=== PATIENT | female | born 1940 | race Caucasian/White ===

== ENCOUNTER → 2018-06-19 18:30 | Outpatient (CLI) | payer OTHER | END | disposition home or self-care (01) | LOC: D.LABREF 18:30 | PROVIDERS: ATTEND Orthopaedic Surgery | DX: M17.11 Unilateral primary osteoarthritis, right knee (principal); Z11.8 Encounter for screening for other infectious and parasitic diseases ==

== ENCOUNTER 2018-07-18 12:32 | Inpatient (IN) | payer MEDICARE, MEDICAID ==
[~2018-07-18] VITALS: Ht 160 cm; Wt 90.7 kg
[2018-08-14] MEDS ORDERED: BAYER CHEWABLE81 MG PO (14:17)
[2018-08-14] MEDS ORDERED: CITRACAL + D E1 EACH PO (14:18)
[2018-08-14] MEDS ORDERED: LOPRESSOR25 MG PO (14:18)
[2018-08-14] MEDS ORDERED: CENTRUM SILVER1 EAC3 PO (14:18)
[2018-08-14] MEDS ORDERED: ZETIA10 MG PO (14:39)
[2018-08-14] MEDS ORDERED: CO Q-1030 MG (14:39)
[2018-08-14] MEDS ORDERED: NORVASC10 MG PO (14:39)
[2018-08-14] MEDS ORDERED: FLUTICASONE PRO16 GM NASAL (14:40)
[2018-08-14] MEDS ORDERED: HUMALOG U SC (14:42)
[2018-08-14] MEDS ORDERED: PAXIL30 MG PO (14:44)
[2018-08-14] MEDS ORDERED: COUMADIN5 MG PO (14:44)
[2018-08-14] MEDS ORDERED: COZAAR100 MG PO (14:44)
[2018-08-15 12:04] LABS: BASOPHILS 0.2 % (0-2); EOSINOPHILS 1.8 % (0-7); HEMATOCRIT 37.9 % (36.0-48.0); HEMOGLOBIN 12.3 g/dL (12-16); IMMATURE GRANULOCYTES 0.5 % (0-5); LYMPHOCYTES 26.2 % (15-50); MCH 29.3 pg (26.0-34.0); MCHC 32.5 g/dL (31.0-37.0); MCV 90.2 fL (80.0-100.0); MEAN PLATELET VOLUME 10.1 fL (7.4-10.4); MONOCYTES 9.5 % (2-11); NEUTROPHILS 61.8 % (40-80); PLATELET COUNT 229 10x3/uL (130-400); WBC 10.8 10x3/uL (4.8-10.8)
[2018-08-15 12:21] LABS: ANION GAP 13.3 mmol/L (8-16); CALCIUM 9.4 mg/dL (8.5-10.1); CARBON DIOXIDE 31.7 mmol/L (21.0-32.0)
[2018-08-15 12:29] LABS: INR 1.97 (0.85-1.17); PROTIME 21.7 SECONDS (11.6-15.0)
[2018-08-15 12:30] LABS: APTT 59.9 SECONDS (22.8-39.4)
[2018-08-15 13:15] LABS: APPEARANCE HAZY (CLEAR); BACTERIA MANY /hpf (NONE SEEN); BILIRUBIN NEGATIVE (NEGATIVE); COLOR YELLOW (YELLOW); EPITHELIAL CELLS 0-5 /hpf (0-5); GLUCOSE NEGATIVE (NEGATIVE); KETONE NEGATIVE (NEGATIVE); MUCUS <1+ /lpf (NONE SEEN); NITRITE POSITIVE (NEGATIVE); PROTEIN TRACE mg/dL (NEGATIVE); SPECIFIC GRAVITY 1.015 (1.005-1.020); UROBILINOGEN NORMAL (NORMAL)
[2018-08-22] VITALS (15 sets, daily range): BP systolic 91–142; BP diastolic 40–749; BMI 40.8; BMI 35.5
[2018-08-23] VITALS: BP 134/49
[2018-08-23 04:00] VITALS: BP 133/61
[2018-08-23 05:04] LABS: BASOPHILS 0.1 % (0-2); EOSINOPHILS 0 % (0-7); HEMATOCRIT 32.9 % (36.0-48.0); HEMOGLOBIN 10.4 g/dL (12-16); IMMATURE GRANULOCYTES 0.2 % (0-5); LYMPHOCYTES 10.8 % (15-50); MCH 28.5 pg (26.0-34.0); MCHC 31.6 g/dL (31.0-37.0); MCV 90.1 fL (80.0-100.0); MEAN PLATELET VOLUME 10.4 fL (7.4-10.4); MONOCYTES 7.9 % (2-11); PLATELET COUNT 194 10x3/uL (130-400); RBC 3.65 10x6/uL (4.00-5.40); RDW 14.9 % (11.5-14.5); WBC 12.1 10x3/uL (4.8-10.8)
[2018-08-23 05:16] LABS: ANION GAP 13.1 mmol/L (8-16); CREATININE - SERUM 1.5 mg/dL (0.6-1.3); POTASSIUM - SERUM 5.1 mmol/L (3.5-5.1)
[2018-08-23 08:15] VITALS: BP 142/66
[2018-08-23 12:24] VITALS: BP 142/67
[2018-08-23 12:52] VITALS: Ht 160 cm; Wt 90.7 kg
[2018-08-23 16:26] VITALS: BP 127/53
[2018-08-23 20:00] VITALS: BP 144/73
[2018-08-24] VITALS: BP 146/68
[2018-08-24 04:00] VITALS: BP 160/69
[2018-08-24 06:36] LABS: BASOPHILS 0.2 % (0-2); EOSINOPHILS 1.8 % (0-7); HEMATOCRIT 32.8 % (36.0-48.0); HEMOGLOBIN 10.4 g/dL (12-16); IMMATURE GRANULOCYTES 0.4 % (0-5); LYMPHOCYTES 20.5 % (15-50); MCH 28.9 pg (26.0-34.0); MCHC 31.7 g/dL (31.0-37.0); MCV 91.1 fL (80.0-100.0); MEAN PLATELET VOLUME 10.8 fL (7.4-10.4); MONOCYTES 10.9 % (2-11); NEUTROPHILS 66.2 % (40-80); PLATELET COUNT 190 10x3/uL (130-400); RDW 14.9 % (11.5-14.5)
[2018-08-24] MEDS ORDERED: HYDROCODON-ACE1 EAC2 PO (07:46)
[2018-08-24 09:00] VITALS: BP 158/70
[2018-08-24 09:25] LABS: CALCIUM 8.4 mg/dL (8.5-10.1)
[2018-08-24 09:27] LABS: CREATININE - SERUM 1.1 mg/dL (0.6-1.3)
[2018-08-24 09:28] LABS: ANION GAP 9.9 mmol/L (8-16); CARBON DIOXIDE 30.4 mmol/L (21.0-32.0); POTASSIUM - SERUM 4.3 mmol/L (3.5-5.1)
[2018-08-24 13:23] VITALS: BP 149/56
--- NOTE | 2018-08-24 14:59 | MORECARE ---
CASE MANAGEMENT DISCHARGE SUMMARY PATIENT: CHAITANYA RICKS UNIT: [id number] ADM DATE: 08/22/18 AGE: 77 : 42 SEX: F ROOM/BED: D.2206 AUTHOR: NUSRAT WHITESIDE PHYSICIAN: REFERRING PHYSICIAN: AMA PERERA MD DATE OF SERVICE: 08/24/18 Discharge Plan Patient Name: CHAITANYA RICKS Facility: [facility]:[place] : 1940 Planned Disposition: Half-Way Facility Anticipated Discharge Date: Discharge Date: Expected LOS: Initial Reviewer: [email or web address] Initial Review Date: 08/22/2018 Generated: 08/24/18 3:59 pm Comments DCP- Discharge Planning Updated by [email or web address]: Zohra Ham on 08/24/18 1:[address] Patient Name: CHAITANYA RICKS Admission Status: Elective Accout number: [id number] Admission Date: 08-22-2018 : 1940 Admission Diagnosis: Attending: AMA PERERA Current LOS: 2 Anticipated DC Date: Planned Disposition: Half-Way Facility Primary Insurance: [facility] MEDICARE SOLUTIONS Discharge Planning Comments: CM met with patient to complete initial dc planning assessment. CM educated patient on the CM role and verbal consent given by patient to complete assessment. Patient lives at home independently where she is lives alone. At discharge patient would like to go to a skilled facility and feels this is a safe discharge. CM discussed availability of home health, rehab services, and medical equipment. SALLY with 1)[facility] 2) [facility]. I sent referral to [facility] and they are out of network. Patient's second choice is [facility]. I sent a referral to [facility]. Will wait for Auth. Patient has a walker and a cane at home. 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 CM will continue to follow and will assist as needed with dc plans/needs. Sr. Director Product Management: Zohra Ham DCPIA - Discharge Planning Initial Assessment Updated by [email or web address]: Zohra Ham on 08/24/18 2:53 pm * Is the patient Alert and Oriented? Yes * How many steps to enter\exit or inside your home? * PCP LALI * Pharmacy [facility] * Preadmission Environment Home Alone * ADLs Independent * Equipment Cane Walker * List name and contact numbers for known caregivers / representatives who currently or will assist patient after discharge: MERLYN RICKS [phone] * Verbal permission to speak to the caregivers and representatives has been obtained from the patient. N/A * Community resources currently utilized None * Additional services required to return to the preadmission environment? Yes * Can the patient safely return to the preadmission environment? No * Has this patient been hospitalized within the prior 30 days at any hospital? No External Providers External Provider: [facility] Next Contact Date: Service Request Date: Service Type: Resolution: Reviewer: Comments: [facility] Next Contact Date: Service Request Date: Service Type: Resolution: Reviewer: Comments: Coverage Notice Reviewer: [id number] Ty Ham Notice Issued Date-Time: 08/24/2018 14:55 Notice Type: Patient Choice Letter Notice Delivered To: Patient Relationship to Patient: Lead Sprinkler Name: Delivery Method: HAND - Hand Delivered Cynthia Days: Prior Verbal Notification: Recipient Understood Notice: Yes Recipient Signature: Yes Med Rec Note Co-signed by Attending: Coverage Notice Comment: Patient Name: CHAITANYA RICKS Page [id number] at 1459 All edits/amendments must be made on the electronic document DICTATION DATE: 08/24/181457 LINE COOK: VIKTOR 08/24/181457 RPT#: [id number] DC DATE: STATUS: ADM IN [facility] [address] [place] [address] END OF REPORT
[2018-08-24 17:22] VITALS: BP 169/55
[2018-08-24 19:47] VITALS: BP 170/74
[2018-08-25] VITALS: BP 187/84
[2018-08-25 04:00] VITALS: BP 164/69
[2018-08-25 07:37] LABS: BASOPHILS 0.2 % (0-2); EOSINOPHILS 1.8 % (0-7); HEMOGLOBIN 11.3 g/dL (12-16); IMMATURE GRANULOCYTES 0.8 % (0-5); LYMPHOCYTES 17.8 % (15-50); MCH 28.9 pg (26.0-34.0); MCHC 32.3 g/dL (31.0-37.0); MCV 89.5 fL (80.0-100.0); MEAN PLATELET VOLUME 11.1 fL (7.4-10.4); MONOCYTES 11.5 % (2-11); NEUTROPHILS 67.9 % (40-80); PLATELET COUNT 179 10x3/uL (130-400); RBC 3.91 10x6/uL (4.00-5.40); RDW 14.5 % (11.5-14.5); WBC 12.2 10x3/uL (4.8-10.8)
[2018-08-25 08:35] VITALS: BP 176/81
[2018-08-25 12:48] VITALS: BP 171/63
[2018-08-25 16:47] VITALS: BP 136/77
[2018-08-25 20:00] VITALS: BP 187/89
[2018-08-26] VITALS: BP 180/87
[2018-08-26 04:00] VITALS: BP 167/65
[2018-08-26 09:05] VITALS: BP 136/69
--- NOTE | 2018-08-26 12:10 | MORECARE ---
CASE MANAGEMENT DISCHARGE SUMMARY PATIENT: CHAITANYA RICKS UNIT: [id number] ADM DATE: 08/22/18 AGE: 77 : 42 SEX: F ROOM/BED: D.2206 AUTHOR: NUSRAT WHITESIDE PHYSICIAN: REFERRING PHYSICIAN: AMA PERERA MD DATE OF SERVICE: 08/26/18 Discharge Plan Patient Name: CHAITANYA RICKS Facility: [facility]:[place] : 1940 Planned Disposition: Alf Facility Anticipated Discharge Date: 08/26/18 Discharge Date: Expected LOS: 4 Initial Reviewer: [email or web address] Initial Review Date: 08/22/2018 Generated: 08/26/18 1:10 pm Comments DCP- Discharge Planning Updated by [email or web address]: Zohra Ham on 08/24/18 1:[address] Patient Name: CHAITANYA RICKS Admission Status: Elective Accout number: [id number] Admission Date: 08-22-2018 : 1940 Admission Diagnosis: Attending: AMA PERERA Current LOS: 2 Anticipated DC Date: Planned Disposition: Alf Facility Primary Insurance: [facility] MEDICARE SOLUTIONS Discharge Planning Comments: CM met with patient to complete initial dc planning assessment. CM educated patient on the CM role and verbal consent given by patient to complete assessment. Patient lives at home independently where she is lives alone. At discharge patient would like to go to a skilled facility and feels this is a safe discharge. CM discussed availability of home health, rehab services, and medical equipment. SALLY with 1)[facility] 2) [facility]. I sent referral to [facility] and they are out of network. Patient's second choice is [facility]. I sent a referral to [facility]. Will wait for Auth. Patient has a walker and a cane at home. 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 CM will continue to follow and will assist as needed with dc plans/needs. Subcontract Administrator: Zohra Ham DCPIA - Discharge Planning Initial Assessment Updated by [email or web address]: Zohra Ham on 08/24/18 2:53 pm * Is the patient Alert and Oriented? Yes * How many steps to enter\exit or inside your home? * PCP LALI * Pharmacy [facility] * Preadmission Environment Home Alone * ADLs Independent * Equipment Cane Walker * List name and contact numbers for known caregivers / representatives who currently or will assist patient after discharge: MERLYN RICKS [phone] * Verbal permission to speak to the caregivers and representatives has been obtained from the patient. N/A * Community resources currently utilized None * Additional services required to return to the preadmission environment? Yes * Can the patient safely return to the preadmission environment? No * Has this patient been hospitalized within the prior 30 days at any hospital? No Coverage Notice Reviewer: [id number] Ty Ham Notice Issued Date-Time: 08/24/2018 14:55 Notice Type: Patient Choice Letter Notice Delivered To: Patient Relationship to Patient: Tennis Camp Instructor Name: Delivery Method: HAND - Hand Delivered Cynthia Days: Prior Verbal Notification: Recipient Understood Notice: Yes Recipient Signature: Yes Med Rec Note Co-signed by Attending: Coverage Notice Comment: Last DP export: 08/24/18 1:59 p Patient Name: CHAITANYA RICKS Page 31253 at 1210 All edits/amendments must be made on the electronic document DICTATION DATE: 08/26/18 1210 PRESCHOOL EDUCATION DIRECTOR: VIKTOR 08/26/18 1210 RPT#: [id number] DC DATE: STATUS: ADM IN [facility] [address] [place] [address] END OF REPORT
--- NOTE | 2018-08-26 12:17 | MORECARE ---
CASE MANAGEMENT DISCHARGE SUMMARY PATIENT: CHAITANYA RICKS UNIT: [id number] ADM DATE: 08/22/18 AGE: 77 : 42 SEX: F ROOM/BED: D.2206 AUTHOR: NUSRAT WHITESIDE PHYSICIAN: REFERRING PHYSICIAN: AMA PERERA MD DATE OF SERVICE: 08/26/18 Discharge Plan Patient Name: CHAITANYA RICKS Facility: [facility]:[place] : 1940 Planned Disposition: Half-Way Facility Anticipated Discharge Date: 08/26/18 Discharge Date: Expected LOS: 4 Initial Reviewer: [email or web address] Initial Review Date: 08/22/2018 Generated: 08/26/18 1:17 pm Comments DCP- Discharge Planning Updated by [email or web address]: Alis Oden on 08/26/18 11:[address] LATE ENTRY 1130 CM RECEIVED A TELEPHONE CALL FROM [facility] STATING SHE HAD REC THE AUTH FOR THE PATIENT. [facility] COULD ACCEPT TODAY IF PATIENT WAS MEDICALLY STABLE FOR DISCHARGE. DR GAYTAN HAD DOCUMENTED THIS AM THAT THE PATIENT WAS READY FOR DISCHARGE. ZAHIRA SPOKE WITH THE PRIMARY NURSE. SHE WILL CONTACT DR GAYTAN FOR ORDERS. CM FAXED UPDATED CLINICAL TO [phone]. NURSE IS TO CALL REPORT TO ASTRID AT [facility] AT [phone]. NELLA CALLED BACK TO SAY SHE HAS ARRANGED TRANSPORTATION TO [facility] VIA FACILITY [facility] AT 1300. ZAHIRA SPOKE W/ PRIMARY NURSE AND LEFT HER A NOTE W/ PHONE NUMBER AND PERSON TO SPEAK WITH TO GIVE REPORT. ZAHIRA ALSO NOTED THE TIME ARRANGED FOR TRANSPORT. ZAHIRA SPOKE WITH THE PATIENT TO ADVISE OF AUTH AND PLAN FOR DISCHARGE TODAY. SHE IS IN AGREEMENT. ZAHIRA EXPLAINED DISCHARGE IMM. PATIENT STATES SHE IS READY TO GET STARTED W/ REHAB. SIGNATURE OBTAINED. COPY TO THE PATIENT. SIGNED COPY TO THE PATIENT'S CHART. DCP- Discharge Planning Updated by [email or web address]: Zohra Ham on 08/24/18 1:[address] Patient Name: CHAITANYA RICKS Admission Status: Elective Accout number: [id number] Admission Date: 08-22-2018 : 1940 Admission Diagnosis: Attending: AMA PERERA Current LOS: 2 Anticipated DC Date: Planned Disposition: Half-Way Facility Primary Insurance: [facility] MEDICARE SOLUTIONS Discharge Planning Comments: CM met with patient to complete initial dc planning assessment. CM educated patient on the CM role and verbal consent given by patient to complete assessment. Patient lives at home independently where she is lives alone. At discharge patient would like to go to a skilled facility and feels this is a safe discharge. CM discussed availability of home health, rehab services, and medical equipment. SALLY with 1)[facility] 2) [facility]. I sent referral to [employer] and they are out of network. Patient's second choice is [facility]. I sent a referral to [facility]. Will wait for Auth. Patient has a walker and a cane at home. 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 CM will continue to follow and will assist as needed with dc plans/needs. Mechatronics Technician: Zohra Ham DCPIA - Discharge Planning Initial Assessment Updated by [id number]: Zohra Ham on 08/24/18 2:53 pm * Is the patient Alert and Oriented? Yes * How many steps to enter\exit or inside your home? * PCP LALI * Pharmacy [facility] * Preadmission Environment Home Alone * ADLs Independent * Equipment Cane Walker * List name and contact numbers for known caregivers / representatives who currently or will assist patient after discharge: MERLYN RICKS [phone] * Verbal permission to speak to the caregivers and representatives has been obtained from the patient. N/A * Community resources currently utilized None * Additional services required to return to the preadmission environment? Yes * Can the patient safely return to the preadmission environment? No * Has this patient been hospitalized within the prior 30 days at any hospital? No Coverage Notice Reviewer: [id number] - Zohra Ham Notice Issued Date-Time: 08/24/2018 14:55 Notice Type: Patient Choice Letter Notice Delivered To: Patient Relationship to Patient: Hoist Mechanic Name: Delivery Method: HAND - Hand Delivered Cynthia Days: Prior Verbal Notification: Recipient Understood Notice: Yes Recipient Signature: Yes Med Rec Note Co-signed by Attending: Coverage Notice Comment: Reviewer: [id number] Ty Oden Notice Issued Date-Time: 08/26/2018 12:01 Notice Type: IM Discharge Notice Notice Delivered To: Patient Relationship to Patient: Self Hoist Mechanic Name: Delivery Method: - Cynthia Days: Prior Verbal Notification: Recipient Understood Notice: Recipient Signature: Med Rec Note Co-signed by Attending: Coverage Notice Comment: Last DP export: 08/26/18 11:10 a Patient Name: CHAITANYA RICKS Page [phone] at 1217 All edits/amendments must be made on the electronic document DICTATION DATE: 08/26/18 1216 THERAPEUTIC RECREATION ASSISTANT: VIKTOR 08/26/18 1216 RPT#: [id number] DC DATE: STATUS: ADM IN [facility] [address] [place] [address] END OF REPORT
[2018-08-26 13:10] VITALS: BP 140/58
--- NOTE | 2018-08-26 15:09 | MORECARE ---
CASE MANAGEMENT DISCHARGE SUMMARY PATIENT: CHAITANYA RICKS UNIT: [id number] ADM DATE: 08/22/18 AGE: 77 : 42 SEX: F ROOM/BED: D.2206 AUTHOR: STEVODOC PHYSICIAN: REFERRING PHYSICIAN: AMA PERERA MD DATE OF SERVICE: 08/26/18 Discharge Plan Patient Name: CHAITANYA RICKS Facility: [facility]:[place] : 1940 Planned Disposition: Senior Care Facility Anticipated Discharge Date: 08/26/18 Discharge Date: 08/26/2018 Expected LOS: 4 Initial Reviewer: [email or web address] Initial Review Date: 08/22/2018 Generated: 08/26/18 4:08 pm Comments DCP- Discharge Planning Updated by [id number]: Alis Oden on 08/26/18 11:[address] LATE ENTRY 1130 CM RECEIVED A TELEPHONE CALL FROM [facility] STATING SHE HAD REC THE AUTH FOR THE PATIENT. [facility] COULD ACCEPT TODAY IF PATIENT WAS MEDICALLY STABLE FOR DISCHARGE. DR GAYTAN HAD DOCUMENTED THIS AM THAT THE PATIENT WAS READY FOR DISCHARGE. ZAHIRA SPOKE WITH THE PRIMARY NURSE. SHE WILL CONTACT DR GAYTAN FOR ORDERS. CM FAXED UPDATED CLINICAL TO [phone]. NURSE IS TO CALL REPORT TO [facility] AT [facility] AT [phone]. NELLA CALLED BACK TO SAY SHE HAS ARRANGED TRANSPORTATION TO [facility] VIA FACILITY VAN AT 1300. ZAHIRA SPOKE W/ PRIMARY NURSE AND LEFT HER A NOTE W/ PHONE NUMBER AND PERSON TO SPEAK WITH TO GIVE REPORT. ZAHIRA ALSO NOTED THE TIME ARRANGED FOR TRANSPORT. ZAHIRA SPOKE WITH THE PATIENT TO ADVISE OF AUTH AND PLAN FOR DISCHARGE TODAY. SHE IS IN AGREEMENT. ZAHIRA EXPLAINED DISCHARGE IMM. PATIENT STATES SHE IS READY TO GET STARTED W/ REHAB. SIGNATURE OBTAINED. COPY TO THE PATIENT. SIGNED COPY TO THE PATIENT'S CHART. DCP- Discharge Planning Updated by [id number]: Zohra Ham on 08/24/18 1:[address] Patient Name: CHAITANYA RICKS Admission Status: Elective Accout number: [id number] Admission Date: 08-22-2018 : 1940 Admission Diagnosis: Attending: AMA PERERA Current LOS: 2 Anticipated DC Date: Planned Disposition: Senior Care Facility Primary Insurance: [facility] MEDICARE SOLUTIONS Discharge Planning Comments: CM met with patient to complete initial dc planning assessment. CM educated patient on the CM role and verbal consent given by patient to complete assessment. Patient lives at home independently where she is lives alone. At discharge patient would like to go to a skilled facility and feels this is a safe discharge. CM discussed availability of home health, rehab services, and medical equipment. SALLY with 1)[facility] 2) [facility]. I sent referral to [place] and they are out of network. Patient's second choice is [facility]. I sent a referral to [facility]. Will wait for Auth. Patient has a walker and a cane at home. 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 CM will continue to follow and will assist as needed with dc plans/needs. Research Quality Assurance Analyst: Zohra Ham DCPIA - Discharge Planning Initial Assessment Updated by [id number]: Zohra Ham on 08/24/18 2:53 pm * Is the patient Alert and Oriented? Yes * How many steps to enter\exit or inside your home? * PCP LALI * Pharmacy [facility] * Preadmission Environment Home Alone * ADLs Independent * Equipment Cane Walker * List name and contact numbers for known caregivers / representatives who currently or will assist patient after discharge: MERLYN RICKS [phone] * Verbal permission to speak to the caregivers and representatives has been obtained from the patient. N/A * Community resources currently utilized None * Additional services required to return to the preadmission environment? Yes * Can the patient safely return to the preadmission environment? No * Has this patient been hospitalized within the prior 30 days at any hospital? No Coverage Notice Reviewer: [id number] - Zohra Ham Notice Issued Date-Time: 08/24/2018 14:55 Notice Type: Patient Choice Letter Notice Delivered To: Patient Relationship to Patient: Soap Maker Name: Delivery Method: HAND - Hand Delivered Cynthia Days: Prior Verbal Notification: Recipient Understood Notice: Yes Recipient Signature: Yes Med Rec Note Co-signed by Attending: Coverage Notice Comment: Reviewer: [email or web address] Ty Oden Notice Issued Date-Time: 08/26/2018 12:01 Notice Type: IM Discharge Notice Notice Delivered To: Patient Relationship to Patient: Self Soap Maker Name: Delivery Method: HAND - Hand Delivered Cynthia Days: Prior Verbal Notification: Recipient Understood Notice: Yes Recipient Signature: Yes Med Rec Note Co-signed by Attending: Coverage Notice Comment: CM EXPLAINED DISCHARGE IMM. PATIENT HAD NO QUESTIONS OR CONCERN. SIGNATURE OBTAINED. COPY TO THE PATIENT. COPY TO THE HARD COVER CHART. Last DP export: 08/26/18 11:17 a Patient Name: CHAITANYA RICKS Page 28595 at 1509 All edits/amendments must be made on the electronic document DICTATION DATE: 08/26/18 1508 DIRECTOR ELECTRICAL ENGINEERING: VIKTOR 08/26/18 1508 RPT#: [id number] DC DATE:08/26/18 STATUS: DIS IN [facility] [address] [place] [address] END OF REPORT
== END 2018-08-26 13:52 | DRG 470 ==
LOC: D.SDCHOLD 08-15 10:00 → D.MS 08-22 05:50 → D.SDCHOLD 08-22 05:50 → D.MS 08-22 11:00 → D.SDCHOLD 11-22 10:00
PROVIDERS: Nurse Practitioner Family; ADMIT Orthopaedic Surgery; ATTEND Orthopaedic Surgery
PROC: 0SRC0J9 Replacement of Right Knee Joint with Synthetic Substitute, Cemented, Open Approach (ICD-10-PCS; principal; 2018-08-22 08:00)
DX: M17.11 Unilateral primary osteoarthritis, right knee (principal); I10 Essential (primary) hypertension; E78.5 Hyperlipidemia, unspecified; E11.9 Type 2 diabetes mellitus without complications

== ENCOUNTER → 2018-08-21 12:15 | Outpatient (CLI) | payer MEDICARE, MEDICAID ==
[~2018-08-21] VITALS: Ht 160 cm; Wt 104.3 kg
[~2018-08-21 12:15] MED LIST: BAYER CHEWABLE81 MG PO; CENTRUM SILVER1 EAC3 PO; CITRACAL + D E1 EACH PO; CO Q-1030 MG; COUMADIN5 MG PO; COZAAR100 MG PO; FLUTICASONE PRO16 GM NASAL; HUMALOG U SC; HYDROCODON-ACE1 EAC2 PO; LOPRESSOR25 MG PO; NORVASC10 MG PO; PAXIL30 MG PO; ZETIA10 MG PO
[2018-08-21 14:04] LABS: APPEARANCE CLEAR (CLEAR); BACTERIA MODERATE /hpf (NONE SEEN); BILIRUBIN NEGATIVE (NEGATIVE); COLOR YELLOW (YELLOW); EPITHELIAL CELLS 0-5 /hpf (0-5); GLUCOSE NEGATIVE (NEGATIVE); KETONE NEGATIVE (NEGATIVE); MUCUS <1+ /lpf (NONE SEEN); NITRITE NEGATIVE (NEGATIVE); PROTEIN TRACE mg/dL (NEGATIVE); SPECIFIC GRAVITY 1.005 (1.005-1.020); UROBILINOGEN NORMAL (NORMAL); WHITE CELLS - URINE OCC /hpf (0-5)
== END | disposition home or self-care (01) ==
LOC: D.LAB 12:15
PROVIDERS: ATTEND Orthopaedic Surgery
DX: N39.0 Urinary tract infection, site not specified (principal)

== ENCOUNTER → 2019-05-28 16:51 | Outpatient (CLI) | payer MEDICARE, MEDICAID ==
[2018-08-23 12:52] VITALS: BMI 35.4
== END | disposition home or self-care (01) ==
LOC: D.LABREF 16:51
PROVIDERS: ATTEND Orthopaedic Surgery
DX: M17.12 Unilateral primary osteoarthritis, left knee (principal)

== ENCOUNTER → 2019-05-29 10:41 | Outpatient (CLI) | payer MEDICARE, MEDICAID ==
[2018-08-23 12:52] VITALS: BMI 35.4
== END | disposition home or self-care (01) ==
LOC: D.MRI 10:41
PROVIDERS: ATTEND Clinical Nurse Specialist Family Health
DX: M25.511 Pain in right shoulder (principal)

== ENCOUNTER 2019-08-14 08:00 | Outpatient (CLI) | payer MEDICARE, MEDICAID ==
[2018-08-23 12:52] VITALS: BMI 35.4
[2019-08-14 11:56] LABS: BASOPHILS 0.2 % (0-2); HEMATOCRIT 42.1 % (36.0-48.0); HEMOGLOBIN 13.3 g/dL (12-16); IMMATURE GRANULOCYTES 0.4 % (0-5); MCH 28.4 pg (26.0-34.0); MCHC 31.6 g/dL (31.0-37.0); MEAN PLATELET VOLUME 10.2 fL (7.4-10.4); MONOCYTES 8.7 % (2-11); NEUTROPHILS 63.7 % (40-80); RBC 4.68 10x6/uL (4.00-5.40); RDW 14.6 % (11.5-14.5); WBC 10.1 10x3/uL (4.8-10.8)
[2019-08-14 11:58] LABS: PLATELET COUNT 230 10x3/uL (130-400)
[2019-08-14] MEDS ORDERED: ACETAMINOPHEN325 MG (12:04)
[2019-08-14 12:06] LABS: ANION GAP 12.3 mmol/L (8-16); CALCIUM 8.8 mg/dL (8.5-10.1); CARBON DIOXIDE 28.6 mmol/L (21.0-32.0); CREATININE - SERUM 0.8 mg/dL (0.6-1.3); POTASSIUM - SERUM 3.9 mmol/L (3.5-5.1)
[2019-08-14 12:07] LABS: APTT 54.9 SECONDS (22.8-39.4); INR 2.11 (0.85-1.17); PROTIME 23.3 SECONDS (11.6-15.0)
[2019-08-14 12:38] LABS: BILIRUBIN NEGATIVE (NEGATIVE); GLUCOSE NEGATIVE (NEGATIVE); KETONE NEGATIVE (NEGATIVE); NITRITE POSITIVE (NEGATIVE); SPECIFIC GRAVITY 1.015 (1.005-1.020); UROBILINOGEN NORMAL (NORMAL)
[2019-08-14 12:39] LABS: BACTERIA MANY /hpf (NEGATIVE); EPITHELIAL CELLS RARE /hpf (0-5); RED CELLS - URINE NONE SEEN /hpf (0-5)
== END 2019-08-14 08:01 | disposition home or self-care (01) ==
LOC: D.PAN 08:00 → D.SDCHOLD 08-21 08:00 → EDSTATUS 08-21 13:00 → D.SDCHOLD 08-21 13:00
PROVIDERS: ATTEND Orthopaedic Surgery
DX: M17.12 Unilateral primary osteoarthritis, left knee (principal)

== ENCOUNTER → 2019-12-03 17:23 | Outpatient (CLI) | payer MEDICARE, MEDICAID ==
[2018-08-23 12:52] VITALS: BMI 35.4
[~2019-12-03 17:23] MED LIST changes: +ACETAMINOPHEN325 MG
== END | disposition home or self-care (01) ==
LOC: D.LABREF 17:23
PROVIDERS: ATTEND Orthopaedic Surgery
DX: M17.12 Unilateral primary osteoarthritis, left knee (principal)

== ENCOUNTER 2019-12-05 08:45 | Inpatient (IN) | payer MEDICARE, MEDICAID ==
[~2019-12-05] VITALS: Ht 160 cm; Wt 95.3 kg
[~2019-12-05 08:45] MED LIST changes: -COUMADIN5 MG PO; +WARFARIN SODIUM5 MG PO
[2019-12-24] MEDS ORDERED: [UNRECOGNIZED DRUG - OTHER] PO (09:58)
[2019-12-24] MEDS ORDERED: ocuvite PO (10:30)
[2019-12-24] MEDS ORDERED: LUTEIN20 MG PO (10:31)
[2019-12-24] MEDS ORDERED: LOVENOX INJ100 MG/ML SC (10:32)
[2019-12-25 11:46] LABS: BASOPHILS 0.2 % (0-2); EOSINOPHILS 2.6 % (0-7); HEMATOCRIT 43.6 % (36.0-48.0); HEMOGLOBIN 13.7 g/dL (12-16); IMMATURE GRANULOCYTES 0.4 % (0-5); LYMPHOCYTES 20.6 % (15-50); MCH 28.2 pg (26.0-34.0); MCHC 31.4 g/dL (31.0-37.0); MCV 89.7 fL (80.0-100.0); MEAN PLATELET VOLUME 10.6 fL (7.4-10.4); MONOCYTES 10.7 % (2-11); NEUTROPHILS 65.5 % (40-80); PLATELET COUNT 240 10x3/uL (130-400); RBC 4.86 10x6/uL (4.00-5.40); RDW 14.5 % (11.5-14.5); WBC 10.8 10x3/uL (4.8-10.8)
[2019-12-25 11:54] LABS: ANION GAP 6.2 mmol/L (8-16); CALCIUM 9.3 mg/dL (8.5-10.1); CARBON DIOXIDE 33.6 mmol/L (21.0-32.0); POTASSIUM - SERUM 3.8 mmol/L (3.5-5.1)
[2019-12-25 11:58] LABS: INR 2.07 (0.85-1.17)
[2019-12-25 11:59] LABS: APTT 64.5 SECONDS (22.8-39.4); BILIRUBIN NEGATIVE (NEGATIVE); KETONE NEGATIVE (NEGATIVE); NITRITE POSITIVE (NEGATIVE); UROBILINOGEN NORMAL mg/dL (< 2)
[2019-12-25 12:00] LABS: BACTERIA MANY HPF (NONE SEEN); EPITHELIAL CELLS 0-5 /hpf (0-5)
[2019-12-30] VITALS (13 sets, daily range): BP systolic 102–143; BP diastolic 38–66; BMI 42.6; BMI 37.4
[2019-12-30 09:15] LABS: BILIRUBIN NEGATIVE (NEGATIVE); INR 1.06 (0.85-1.17); KETONE NEGATIVE (NEGATIVE); NITRITE NEGATIVE (NEGATIVE); PROTIME 13.7 SECONDS (11.6-15.0); UROBILINOGEN NORMAL mg/dL (< 2)
[2019-12-30 09:16] LABS: APTT 66.1 SECONDS (22.8-39.4)
[2019-12-30 09:18] LABS: BACTERIA FEW HPF (NONE SEEN); EPITHELIAL CELLS 0-5 /hpf (0-5); WHITE CELLS - URINE RARE HPF (0-4)
--- NOTE | 2019-12-30 10:53 | NUR ---
THROUGH TRAFFIC KEPT TO A MINIMUM. HIBACLENS AND ALCOHOL USED TO CLEAN BEFORE PREPPING. STERILE GOWNED AND GLOVED TO PREP WITH CHLORAPREP.
--- NOTE | 2019-12-30 14:10 | MORECARE ---
CASE MANAGEMENT DISCHARGE SUMMARY PATIENT: CHAITANYA RICKS AARTI UNIT: [id number] ADM DATE: 12/30/19 AGE: 78 : 42 SEX: F ROOM/BED: D.1212 AUTHOR: NUSRAT WHITESIDE PHYSICIAN: REFERRING PHYSICIAN: NIKO GAYTAN MD DATE OF SERVICE: 12/30/19 Discharge Plan Patient Name: CHAITANYA RICKS [facility] [facility] 1940 Planned Disposition: Anticipated Discharge Date: Discharge Date: Expected LOS: Initial Reviewer: [email or web address] Initial Review Date: 12/30/2019 Generated: 12/30/19 3:09 pm Patient Name: CHAITANYA RICKS Page 11710 at 1410 All edits/amendments must be made on the electronic document DICTATION DATE: 12/30/19 140 TOUCH UP PAINTER HAND: VIKTOR 12/30/19 1409 RPT#: [id number] DC DATE: STATUS: ADM IN [facility] [address] [place] [address] END OF REPORT
[2019-12-30 14:24] LABS: ALBUMIN 2.7 g/dL (3.4-5.0); ANION GAP 12.9 mmol/L (8-16); BILIRUBIN - TOTAL 0.17 mg/dL (0.2-1.3); CALCIUM 8.1 mg/dL (8.5-10.1); CREATININE - SERUM 1.2 mg/dL (0.6-1.3); POTASSIUM - SERUM 4.9 mmol/L (3.5-5.1); PROTEIN - SERUM 6.6 g/dL (6.4-8.2)
--- NOTE | 2019-12-30 14:29 | MORECARE ---
CASE MANAGEMENT DISCHARGE SUMMARY PATIENT: CHAITANYA VILLAFUERTE AARTI UNIT: [id number] ADM DATE: 12/30/19 AGE: 78 : 42 SEX: F ROOM/BED: D.1212 AUTHOR: NUSRAT WHITESIDE PHYSICIAN: REFERRING PHYSICIAN: NIKO GAYTAN MD DATE OF SERVICE: 12/30/19 Discharge Plan Patient Name: CHAITANYA VILLAFUERTE Facility: [facility]:[place] : 1940 Planned Disposition: Anticipated Discharge Date: Discharge Date: Expected LOS: Initial Reviewer: [email or web address] Initial Review Date: 12/30/2019 Generated: 12/30/19 3:28 pm Comments DCP- Discharge Planning Updated by [email or web address]: Leslie Westbrook on 12/30/19 1:[address] CM met with patient, who is still drowsy, to discuss DC plans. Patient is in agreement to same. PCP: Dr. Robert Silva. [facility]acy[facility]. Patient lives independently at [facility], alone. DME: Emergency call maurer, walker, cane, CPM, BSC, Shower chair, hand held shower. Emergency contact: Nicolás Villafuerte (son) [phone]. CM discussed HHS, OP Therapy, SNF, Rehab. Patient states that she plans to go to [facility] for OP Therapy. When questioned about transportation, patient reports "I'll walk there." Patient reports that she does not want to go into a SNF due to the COVID virus. CM will revisit tomorrow, when the patient is more alert and discuss DC plans again. DCPIA - Discharge Planning Initial Assessment Updated by [email or web address]: Leslie Westbrook on 12/30/19 2:22 pm * Is the patient Alert and Oriented? Yes * How many steps to enter\\exit or inside your home? * PCP Dr. Robert Nichole. * Pharmacy [facility] * Preadmission Environment Home Alone * ADLs Independent * Equipment Bedside Commode Cane Grab Bars Rolling Walker Tub Bench Walker * Other Equipment CPM * List name and contact numbers for known caregivers / representatives who currently or will assist patient after discharge: Nicolás Villafuerte [phone] * Verbal permission to speak to the caregivers and representatives has been obtained from the patient. Yes * Additional services required to return to the preadmission environment? Yes * Can the patient safely return to the preadmission environment? No * Has this patient been hospitalized within the prior 30 days at any hospital? No Last DP export: 12/30/19 1:10 p Patient Name: CHAITANYA VILLAFUERTE Page 87592 at 1429 All edits/amendments must be made on the electronic document DICTATION DATE: 12/30/191427 SPOT SPRAYER: VIKTOR 12/30/191427 RPT#: [id number] DC DATE: STATUS: ADM IN [facility] [address] [place] [address] END OF REPORT
[2019-12-30 14:30] LABS: BASOPHILS 0.1 % (0-2); EOSINOPHILS 0.4 % (0-7); HEMATOCRIT 38.1 % (36.0-48.0); HEMOGLOBIN 11.8 g/dL (12-16); IMMATURE GRANULOCYTES 0.7 % (0-5); LYMPHOCYTES 7.2 % (15-50); MCH 28.2 pg (26.0-34.0); MCV 90.9 fL (80.0-100.0); MEAN PLATELET VOLUME 10.7 fL (7.4-10.4); MONOCYTES 3.1 % (2-11); NEUTROPHILS 88.5 % (40-80); PLATELET COUNT 195 10x3/uL (130-400); RBC 4.19 10x6/uL (4.00-5.40); RDW 14.9 % (11.5-14.5); WBC 14.8 10x3/uL (4.8-10.8)
--- NOTE | 2019-12-30 15:25 | NUR ---
PT AWAKE AND HUNGRY. LUNCH TRAY EATEN BY SON. SANDWICH TRAY RECIEVED FROM L&D. CL IN REACH. NO FURTHER NEEDS AT THIS TIME. BED ALARM ON. WCTM
--- NOTE | 2019-12-30 16:56 | MORECARE ---
CASE MANAGEMENT DISCHARGE SUMMARY PATIENT: CHAITANYA VILLAFUERTE AARTI UNIT: [id number] ADM DATE: 12/30/19 AGE: 78 : 42 SEX: F ROOM/BED: D.1212 AUTHOR: NUSRAT WHITESIDE PHYSICIAN: REFERRING PHYSICIAN: NIKO GAYTAN MD DATE OF SERVICE: 12/30/19 Discharge Plan Patient Name: CHAITANYA VILLAFUERTE Facility: [facility]:[place] : 1940 Planned Disposition: Anticipated Discharge Date: Discharge Date: Expected LOS: Initial Reviewer: [email or web address] Initial Review Date: 12/30/2019 Generated: 12/30/19 5:56 pm Comments DCP- Discharge Planning Updated by [id number]: Leslie Westbrook on 12/30/19 1:[address] CM met with patient, who is still drowsy, to discuss DC plans. Patient is in agreement to same. PCP: Dr. Robert Silva. Pharmacy: [facility]. Patient lives independently at [facility], alone. DME: Emergency call maurer, walker, cane, CPM, BSC, Shower chair, hand held shower. Emergency contact: Nicolás Villafuerte (son) [phone]. CM discussed HHS, OP Therapy, SNF, Rehab. Patient states that she plans to go to [facility] for OP Therapy. When questioned about transportation, patient reports "I'll walk there." Patient reports that she does not want to go into a SNF due to the COVID virus. CM will revisit tomorrow, when the patient is more alert and discuss DC plans again. DCPIA - Discharge Planning Initial Assessment Updated by [email or web address]: Leslie Westbrook on 12/30/19 2:22 pm * Is the patient Alert and Oriented? Yes * How many steps to enter\\exit or inside your home? * PCP Dr. Robert Nichole. * Pharmacy [facility] * Preadmission Environment Home Alone * ADLs Independent * Equipment Bedside Commode Cane Grab Bars Rolling Walker Tub Bench Walker * Other Equipment CPM * List name and contact numbers for known caregivers / representatives who currently or will assist patient after discharge: Nicolás Villafuerte [phone] * Verbal permission to speak to the caregivers and representatives has been obtained from the patient. Yes * Additional services required to return to the preadmission environment? Yes * Can the patient safely return to the preadmission environment? No * Has this patient been hospitalized within the prior 30 days at any hospital? No Last DP export: 12/30/19 1:29 p Patient Name: CHAITANYA VILLAFUERTE Page 52337 at 1656 All edits/amendments must be made on the electronic document DICTATION DATE: 12/30/191655 DELINQUENT NOTICE MACHINE OPERATOR: VIKTOR 12/30/191655 RPT#: [id number] DC DATE: STATUS: ADM IN [facility] [address] [place] [address] END OF REPORT
--- NOTE | 2019-12-30 19:00 | NUR ---
PATIENT RESTING WITH EYES CLOSED AND UNLABORED RESPIRATIONS WHEN ENTERING THE ROOM. PATIENT AWAKENS WHEN NAME CALLED. PATIENT ALERT AND ORIENTED X 4. PATIENT CURRENTLY WEARING CPM PER ORDER. PATIENT DENIES PAIN AT THIS TIME. PERIPHERAL PULSES ASSESSED. PALPABLE PULSE IN THE LEFT DORSALIS PEDAL PULSE. PATIENT WEARING TEDS AT THIS TIME PER ORDER. PATIENT HAS RIGHT WRIST IV THAT IS INFUSING FLUIDS PER ORDER. IV APPEARS PATENT, 20G IN SIZE, WITH NO REDNESS OR IRRITATION NOTED, DRESSING ADHERED TO SKIN. ASSESSMENT PERFORMED. PATIENT DENIES PAIN OR DISCOMFORT AT THIS TIME. EDUCATED PATIENT ON PLAN OF CARE. UBALDO RECEPTIVE TO TEACHING. ENCOURAGED USE OF INCENTIVE SPIROMETER. PATIENT VERBALIZES UNDERSTANDING. PATIENT DENIES QUESTIONS AT THIS TIME. CALL LIGHT CLOSE. CPOC.
--- NOTE | 2019-12-30 19:40 | NUR ---
FSBS 351ROGELIO RN IN ROOM TO WITNESS. PATIENT TOLERATED WELL. DENIES FURTHER NEEDS AT THIS TIME. CALL LIGHT REMAINS CLOSE. CPOC.
--- NOTE | 2019-12-30 21:38 | NUR ---
ASSISTED PATIENT WITH BED LU. VOIDED 250 CC YELLOW URINE. PATIENT TURNS WELL WITH ONE PERSON ASSIST. ADMINISTERED MEDICATIONS TO PATIENT AND REMOVED FROM CPM. EDUCATED PATIENT ON USE OF INCENTIVE SPIROMETER. PATIENT PERFORMED RETURN DEMONSTRATION TO THIS NURSE. CURRENTLY USING WHEN EXITING THE ROOM. CPOC.
--- NOTE | 2019-12-30 23:25 | NUR ---
ASSISTED WITH BED LU. PATIENT TOLERATED WELL, BUT COMPLAINS THAT "THE BLOCK IS WEARING OFF, MY KNEE IS STARTING TO HURT." PATIENT REQUESTS PAIN MEDICATION. ADMINISTERED HYDROCODONE PER ORDER. PATIENT TOLERATED WELL. PATIENT REQUESTS TEDS BE REMOVED NOW, INSTEAD OF MIDNIGHT, REMOVED AND SKIN INTEGRITY REMAINS UNCHANGED FROM PRIOR ASSESSMENT. INSTRUCTED PATIENT WE WILL APPLY IN ONE HOUR. PATIENT VERBALIZED UNDERSTANDING. FALL PRECAUTIONS REMAIN IN PLACE. CPOC.
[2019-12-31] VITALS: BP 145/80
--- NOTE | 2019-12-31 00:40 | NUR ---
REAPPLIED PEDRO LUIS HOSE AT THIS TIME. PATIENT TOLERATED WELL. WHEN ASKED ABOUT PAIN, PATIENT STATES "I AM GOOD, I DONT HAVE ANY PAIN RIGHT NOW." DENIES FURTHER NEEDS AT THIS TIME. CALL LIGHT IS CLOSE TO PATIENT. INCENTIVE SPIROMETER IN REACH. ENCOURAGED PATIENT TO COUGH, PATIENT DID SO. DOOR CRACKED FOR MONITORING. CPOC.
[2019-12-31 04:00] VITALS: BP 140/60
[2019-12-31 07:01] LABS: BASOPHILS 0.1 % (0-2); EOSINOPHILS 0.2 % (0-7); HEMATOCRIT 32.6 % (36.0-48.0); HEMOGLOBIN 10.1 g/dL (12-16); IMMATURE GRANULOCYTES 0.5 % (0-5); LYMPHOCYTES 10.8 % (15-50); MCH 28.3 pg (26.0-34.0); MCV 91.3 fL (80.0-100.0); MEAN PLATELET VOLUME 11.5 fL (7.4-10.4); MONOCYTES 9.4 % (2-11); PLATELET COUNT 201 10x3/uL (130-400); RBC 3.57 10x6/uL (4.00-5.40); RDW 14.9 % (11.5-14.5); WBC 13.2 10x3/uL (4.8-10.8)
[2019-12-31 07:24] VITALS: BP 128/55
[2019-12-31 07:30] LABS: ALBUMIN 2.5 g/dL (3.4-5.0); ANION GAP 7.8 mmol/L (8-16); BILIRUBIN - TOTAL 0.39 mg/dL (0.2-1.3); CALCIUM 7.8 mg/dL (8.5-10.1); CARBON DIOXIDE 28.6 mmol/L (21.0-32.0); CREATININE - SERUM 1.2 mg/dL (0.6-1.3); POTASSIUM - SERUM 4.4 mmol/L (3.5-5.1); PROTEIN - SERUM 5.9 g/dL (6.4-8.2)
[2019-12-31 07:43] LABS: INR 1.23 (0.85-1.17); PROTIME 15.5 SECONDS (11.6-15.0)
[2019-12-31 13:31] VITALS: BP 140/45
--- NOTE | 2019-12-31 13:40 | MORECARE ---
CASE MANAGEMENT DISCHARGE SUMMARY PATIENT: CHAITANYA VILLAFUERTE AARTI UNIT: [id number] ADM DATE: 12/30/19 AGE: 79 : 42 SEX: F ROOM/BED: D.1212 AUTHOR: NUSRAT WHITESIDE PHYSICIAN: REFERRING PHYSICIAN: NIKO GAYTAN MD DATE OF SERVICE: 12/31/19 Discharge Plan Patient Name: CHAITANYA VILLAFUERTE Facility: [facility]:[place] : 1940 Planned Disposition: Anticipated Discharge Date: Discharge Date: Expected LOS: Initial Reviewer: [email or web address] Initial Review Date: 12/30/2019 Generated: 12/31/19 2:39 pm Comments DCP- Discharge Planning Updated by [id number]: Leslie Westbrook on 12/30/19 1:[address] CM met with patient, who is still drowsy, to discuss DC plans. Patient is in agreement to same. PCP: Dr. Robert Silva. [facility]acy[facility]. Patient lives independently at [facility], alone. DME: Emergency call maurer, walker, cane, CPM, BSC, Shower chair, hand held shower. Emergency contact: Nicolás Villafuerte (son) [phone]. CM discussed HHS, OP Therapy, SNF, Rehab. Patient states that she plans to go to [facility] for OP Therapy. When questioned about transportation, patient reports "I'll walk there." Patient reports that she does not want to go into a SNF due to the COVID virus. CM will revisit tomorrow, when the patient is more alert and discuss DC plans again. DCPIA - Discharge Planning Initial Assessment Updated by [email or web address]: Leslie Westbrook on 12/30/19 2:22 pm * Is the patient Alert and Oriented? Yes * How many steps to enter\\exit or inside your home? * PCP Dr. Robert Nichole. * Pharmacy [facility] * Preadmission Environment Home Alone * ADLs Independent * Equipment Bedside Commode Cane Grab Bars Rolling Walker Tub Bench Walker * Other Equipment CPM * List name and contact numbers for known caregivers / representatives who currently or will assist patient after discharge: Nicolás Villafuerte [phone] * Verbal permission to speak to the caregivers and representatives has been obtained from the patient. Yes * Additional services required to return to the preadmission environment? Yes * Can the patient safely return to the preadmission environment? No * Has this patient been hospitalized within the prior 30 days at any hospital? No External Providers External Provider: [facility] Next Contact Date: Service Request Date: Service Type: Resolution: Reviewer: Comments: Last DP export: 12/30/19 3:56 p Patient Name: CHAITANAY VILLAFUERTE Page [phone] at 1340 All edits/amendments must be made on the electronic document DICTATION DATE: 12/31/19 133 WEB CONSULTANT: VIKTOR 12/31/19 133 RPT#: [id number] DC DATE: STATUS: ADM IN [facility] [address] [place] [address] END OF REPORT
[2019-12-31 13:42] VITALS: Ht 160 cm; Wt 95.3 kg
--- NOTE | 2019-12-31 14:02 | MORECARE ---
CASE MANAGEMENT DISCHARGE SUMMARY PATIENT: CHAITANYA VILLAFUERTE AARTI UNIT: [id number] ADM DATE: 12/30/19 AGE: 79 : 42 SEX: F ROOM/BED: D.1212 AUTHOR: STEVO,DOC PHYSICIAN: REFERRING PHYSICIAN: NIKO GAYTAN MD DATE OF SERVICE: 12/31/19 Discharge Plan Patient Name: CHAITANYA VILLAFUERTE Facility: [facility]:[place] : 1940 Planned Disposition: Anticipated Discharge Date: Discharge Date: Expected LOS: Initial Reviewer: [email or web address] Initial Review Date: 12/30/2019 Generated: 12/31/19 3:02 pm Comments DCP- Discharge Planning Updated by [email or web address]: Lesliedhaval Westbrook on 12/31/19 12:[address] CM met with patient again, today for DC plans. Patient is in agreement to go into a SNF, [facility]. Patient choice has been signed. CM contacted [facility] ([phone]), [facility] and faxed the required documentation. Await CB. Patient states that she would really like to walk from her apartment to [facility]. Patient has [employer] [facility] 2H/day, 3D/week prior to admission. CM dissuaded patient from walking to therapy , at least until she goes through her therapy and returns for her follow-up appointment. Patient agrees to same. DCP- Discharge Planning Updated by [email or web address]: Leslie Westbrook on 12/30/19 1:[address] CM met with patient, who is still drowsy, to discuss DC plans. Patient is in agreement to same. PCP: Dr. Robert Silva. [facility] DME: Emergency call maurer, walker, cane, CPM, BSC, Shower chair, hand held shower. Emergency contact: Nicolás Villafuerte (son) [phone]. CM discussed HHS, OP Therapy, SNF, Rehab. Patient states that she plans to go to [facility] for OP Therapy. When questioned about transportation, patient reports "I'll walk there." Patient reports that she does not want to go into a SNF due to the COVID virus. CM will revisit tomorrow, when the patient is more alert and discuss DC plans again. DCPIA - Discharge Planning Initial Assessment Updated by [email or web address]: Leslie Westbrook on 12/30/19 2:22 pm * Is the patient Alert and Oriented? Yes * How many steps to enter\\exit or inside your home? * PCP Dr. Robert Nichole. * Pharmacy [facility] * Preadmission Environment Home Alone * ADLs Independent * Equipment Bedside Commode Cane Grab Bars Rolling Walker Tub Bench Walker * Other Equipment CPM * List name and contact numbers for known caregivers / representatives who currently or will assist patient after discharge: Nicolás Villafuerte [phone] * Verbal permission to speak to the caregivers and representatives has been obtained from the patient. Yes * Additional services required to return to the preadmission environment? Yes * Can the patient safely return to the preadmission environment? No * Has this patient been hospitalized within the prior 30 days at any hospital? No Last DP export: 12/31/19 12:40 p Patient Name: CHAITANYA VILLAFUERTE Page [phone] at 1402 All edits/amendments must be made on the electronic document DICTATION DATE: 12/31/191401 ART COORDINATOR: VIKTOR 12/31/191401 RPT#: [id number] DC DATE: STATUS: ADM IN [facility] [address] [place] [address] END OF REPORT
--- NOTE | 2019-12-31 14:30 | MORECARE ---
CASE MANAGEMENT DISCHARGE SUMMARY PATIENT: CHAITANYA VILLAFUERTE AARTI UNIT: [id number] ADM DATE: 12/30/19 AGE: 79 : 42 SEX: F ROOM/BED: D.1212 AUTHOR: STEVO,DOC PHYSICIAN: REFERRING PHYSICIAN: NIKO GAYTAN MD DATE OF SERVICE: 12/31/19 Discharge Plan Patient Name: CHAITANYA VILLAFUERTE Facility: [facility]:[place] : 1940 Planned Disposition: Anticipated Discharge Date: Discharge Date: Expected LOS: Initial Reviewer: [email or web address] Initial Review Date: 12/30/2019 Generated: 12/31/19 3:30 pm Comments DCP- Discharge Planning Updated by [email or web address]: Leslie Westbrook on 12/31/19 1:[address] CB [facility]. Le states the facility will not have a bed available until next week. CM contacted Michelle, with the [facility] and faxed required information, pending insurance authorization. CM met with patient again, today for DC plans. Patient is in agreement to go into a SNF, her choice id [facility]. Patient choice has been signed. CM contacted [facility] [phone]), [facility] and faxed the required documentation. Await CB. Patient states that she would really like to walk from her apartment to [employer]. Patient has [employer] 2H/day, 3D/week prior to admission. CM dissuaded patient from walking to therapy , at least until she goes through her therapy and returns for her follow-up appointment. Patient agrees to same. DCP- Discharge Planning Updated by [id number]: Leslie Westbrook on 12/30/19 1:[address] CM met with patient, who is still drowsy, to discuss DC plans. Patient is in agreement to same. PCP: Dr. Robert Silva. [facility]acy[facility]. Patient lives independently at [place], alone. DME: Emergency call maurer, walker, cane, CPM, BSC, Shower chair, hand held shower. Emergency contact: Nicolás Villafuerte (son) [phone]. CM discussed HHS, OP Therapy, SNF, Rehab. Patient states that she plans to go to [facility] for OP Therapy. When questioned about transportation, patient reports "I'll walk there." Patient reports that she does not want to go into a SNF due to the COVID virus. CM will revisit tomorrow, when the patient is more alert and discuss DC plans again. DCPIA - Discharge Planning Initial Assessment Updated by [email or web address]: Lselie Westbrook on 12/30/19 2:22 pm * Is the patient Alert and Oriented? Yes * How many steps to enter\\exit or inside your home? * PCP Dr. Robert Nichole. * [facility]acy [facility] * Preadmission Environment Home Alone * ADLs Independent * Equipment Bedside Commode Cane Grab Bars Rolling Walker Tub Bench Walker * Other Equipment CPM * List name and contact numbers for known caregivers / representatives who currently or will assist patient after discharge: Nicolás Villafuerte [phone] * Verbal permission to speak to the caregivers and representatives has been obtained from the patient. Yes * Additional services required to return to the preadmission environment? Yes * Can the patient safely return to the preadmission environment? No * Has this patient been hospitalized within the prior 30 days at any hospital? No Last DP export: 12/31/19 1:02 p Patient Name: CHAITANYA VILLAFUERTE Page [phone] at 1430 All edits/amendments must be made on the electronic document DICTATION DATE: 12/31/19 143 BRAILLE PROOFREADER: VIKTOR 12/31/19 1430 RPT#: [id number] DC DATE: STATUS: ADM IN [facility] [address] [place] [address] END OF REPORT
--- NOTE | 2019-12-31 14:38 | MORECARE ---
CASE MANAGEMENT DISCHARGE SUMMARY PATIENT: KIM VILLAFUERTE AARTI UNIT: [id number] ADM DATE: 12/30/19 AGE: 79 : 42 SEX: F ROOM/BED: D.1212 AUTHOR: STEVO,DOC PHYSICIAN: REFERRING PHYSICIAN: NIKO GAYTAN MD DATE OF SERVICE: 12/31/19 Discharge Plan Patient Name: KIM VILLAFUERTE Facility: [facility]:[place] : 1940 Planned Disposition: Anticipated Discharge Date: Discharge Date: Expected LOS: Initial Reviewer: [email or web address] Initial Review Date: 12/30/2019 Generated: 12/31/19 3:38 pm Comments DCP- Discharge Planning Updated by [email or web address]: Leslie Westbrook on 12/31/19 1:[address] CB from [facility]. Le states the facility will not have a bed available until next week. CM contacted Michelle, with the [facility] and faxed required information, pending insurance authorization. CM met with patient again, today for DC plans. Patient is in agreement to go into a SNF, her choice id [facility]. Patient choice has been signed. CM contacted [facility] [phone]), [facility] and faxed the required documentation. Await CB. Patient states that she would really like to walk from her apartment to [place]. Patient has [employer] 2H/day, 3D/week prior to admission. CM dissuaded patient from walking to therapy , at least until she goes through her therapy and returns for her follow-up appointment. Patient agrees to same. DCP- Discharge Planning Updated by [email or web address]: Leslie Westbrook on 12/30/19 1:[address] CM met with patient, who is still drowsy, to discuss DC plans. Patient is in agreement to same. PCP: Dr. Robert Silva. Pharmacy[facility]. Patient lives independently at [address], alone. DME: Emergency call maurer, walker, cane, CPM, BSC, Shower chair, hand held shower. Emergency contact: Nicolás Villafuerte (son) [phone]. CM discussed HHS, OP Therapy, SNF, Rehab. Patient states that she plans to go to [facility] for OP Therapy. When questioned about transportation, patient reports "I'll walk there." Patient reports that she does not want to go into a SNF due to the COVID virus. CM will revisit tomorrow, when the patient is more alert and discuss DC plans again. DCPIA - Discharge Planning Initial Assessment Updated by [email or web address]: Leslie Barcenaslroy on 12/30/19 2:22 pm * Is the patient Alert and Oriented? Yes * How many steps to enter\\exit or inside your home? * PCP Dr. Robert Nichole. * [facility]acy [facility] * Preadmission Environment Home Alone * ADLs Independent * Equipment Bedside Commode Cane Grab Bars Rolling Walker Tub Bench Walker * Other Equipment CPM * List name and contact numbers for known caregivers / representatives who currently or will assist patient after discharge: Nicolás Villafuerte [phone] * Verbal permission to speak to the caregivers and representatives has been obtained from the patient. Yes * Additional services required to return to the preadmission environment? Yes * Can the patient safely return to the preadmission environment? No * Has this patient been hospitalized within the prior 30 days at any hospital? No External Providers External Provider: [facility] Next Contact Date: Service Request Date: Service Type: Resolution: Reviewer: Comments: Coverage Notice Reviewer: [id number] - Leslie Westbrook Notice Issued Date-Time: 12/31/2019 14:34 Notice Type: Patient Choice Letter Notice Delivered To: Patient Relationship to Patient: Self [employer] Dining Room Attendant Name: Kim Villafuerte Delivery Method: HAND - Hand Delivered Cynthia Days: Prior Verbal Notification: Recipient Understood Notice: Yes Recipient Signature: Yes Med Rec Note Co-signed by Attending: Coverage Notice Comment: #1 [facility], #2 [facility] DP export: 12/31/19 1:30 p Patient Name: KIM VILLAFUERTE Page [phone] at 1438 All edits/amendments must be made on the electronic document DICTATION DATE: 12/31/198 MOTOR BUS DRIVER: VIKTOR 12/31/19 1438 RPT#: [id number] DC DATE: STATUS: ADM IN [facility] [address] [place] [address] END OF REPORT
--- NOTE | 2019-12-31 14:41 | NUR ---
PT BP UP TO 118/68 AT THIS TIME. WCTM.
[2019-12-31 15:37] VITALS: BP 179/76
--- NOTE | 2019-12-31 15:38 | NUR ---
PT C/O PAIN AGAIN 01/10. PERCOCET GIVEN. PT ALSO WITH TEMP OF 99.4. WCTM.
--- NOTE | 2019-12-31 18:03 | NUR ---
PT PLACED ON CPM.
[2019-12-31 19:39] VITALS: BP 132/49
--- NOTE | 2019-12-31 20:00 | NUR ---
ALERT RESTIGN IN BED CPM IN USE, C/O PAIN TO LEFT KNEE, NORCO GIVEN, SEE SHIFT ASSESSMENT, CALL LIGHT IN REACH
[2020-01-01] VITALS: BP 155/67
[2020-01-01 04:00] VITALS: BP 141/60
[2020-01-01 06:47] LABS: BASOPHILS 0.2 % (0-2); EOSINOPHILS 2.4 % (0-7); HEMATOCRIT 31.5 % (36.0-48.0); HEMOGLOBIN 9.8 g/dL (12-16); IMMATURE GRANULOCYTES 0.8 % (0-5); LYMPHOCYTES 14.7 % (15-50); MCH 28.3 pg (26.0-34.0); MCHC 31.1 g/dL (31.0-37.0); MEAN PLATELET VOLUME 10.7 fL (7.4-10.4); NEUTROPHILS 70.9 % (40-80); PLATELET COUNT 163 10x3/uL (130-400); RBC 3.46 10x6/uL (4.00-5.40); RDW 15.3 % (11.5-14.5); WBC 12.8 10x3/uL (4.8-10.8)
[2020-01-01 06:50] LABS: INR 1.22 (0.85-1.17); PROTIME 15.3 SECONDS (11.6-15.0)
[2020-01-01 07:06] LABS: ALBUMIN 2.6 g/dL (3.4-5.0); BILIRUBIN - TOTAL 0.57 mg/dL (0.2-1.3); CALCIUM 7.9 mg/dL (8.5-10.1); CARBON DIOXIDE 29.3 mmol/L (21.0-32.0); POTASSIUM - SERUM 4.3 mmol/L (3.5-5.1); PROTEIN - SERUM 6.4 g/dL (6.4-8.2)
--- NOTE | 2020-01-01 08:10 | NUR ---
PT AWAKE EATING BREAKFAST, DENIES NEEDS. WCTM.
[2020-01-01 09:22] VITALS: BP 149/63
--- NOTE | 2020-01-01 12:18 | NUR ---
PT SITTNG UP IN CHAIR AT THIS TIME. PT DENIES NEEDS.
--- NOTE | 2020-01-01 13:14 | OP ---
PATIENT NAME: CHAITANYA RICKS MEDICAL RECORD: [id number] :44 LOCATION:D. D.1212 ADMISSION DATE:12/30/19 SURGEON: NIKO GAYTAN MD DATE OF OPERATION: 12/30/2019 PREOPERATIVE DIAGNOSIS: Severe degenerative arthritis, left knee. POSTOPERATIVE DIAGNOSIS: Severe degenerative arthritis, left knee. PROCEDURE: Left total knee arthroplasty. SURGEON: Niko Gaytan MD FLOUR BLENDER HELPER: MAXIMILIAN Villatoro INTRAOPERATIVE COMPLICATIONS: None. SUMMARY OF PATHOLOGIC FINDINGS: The patient had severe tricompartmental osteoarthritis. IMPLANTS USED: Triathlon total knee arthroplasty, cemented size 4 cruciate retaining femoral component, size 4 tibial baseplate, size 4 x 9 X3 polyethylene insert and a size 31 x 9 X3 symmetric patellar insert. OPERATIVE SUMMARY IN DETAIL: After obtaining the appropriate preoperative orthopedic surgery consent as well as anesthetic consultation, evaluation and clearance, the patient was brought to the operating room and placed on the operating table in supine position. After adequate general laryngeal mask airway was administered, tourniquet was placed about the proximal aspect of left lower extremity. Left lower extremity was then prepped and draped in routine sterile fashion. At this point, appropriate timeout was taken and agreed upon by all. Leg was elevated and exsanguinated, tourniquet was inflated to 350 mmHg. A midline incision was taken down for paramedian arthrotomy. Patella was everted, distal femur was exposed. Soft tissue excision was done in the usual fashion. An intramedullary guide hole was created for distal femoral cut. Distal femoral cut was made followed by complete exposure of the proximal tibia. Residual menisci were then removed along with the other soft tissue. Intramedullary guide hole was again created for proximal tibial cutting. Proximal tibia was cut. Measurements were made. At this point, the distal femoral chamfer cuts were made and trials corresponding to the above inserts were put in place. After final preparations and alignment was made. The knee was taken through range of motion and found to be stable in all planes. Distal femoral preparation was followed by proximal tibial final preparations. At this point, the arthritic aspect of the patella was excised and the patella was prepared for implantation. Trial components were taken out. The knee cavity was irrigated with pulsatile lavage to remove all debris. Having completed this, final components were cemented into place. All excess cement was removed. After the cement was allowed to harden, the knee was taken through range of motion and found to have excellent patellar tracking to be stable in all planes. A gram of vancomycin and a gram of tobramycin were placed into the knee itself. This was followed by closure with #2 Ethibond followed by #0 Vicryl, 2-0 Vicryl and skin pernell, all done by MAXIMILIAN Villatoro. Sterile dressings were applied. Tourniquet was deflated. The patient was awakened and taken to recovery room in stable condition. All final needle and sponge counts were correct. OPERATIVE REPORT [id number] CHAITANYA RICKS AARTI TRANSINT:[id number] Voice Confirmation ID: [id number] DOCUMENT ID: [id number] LUCILA BUTLER, NIKO ALARCON at 1314 CC: [id number] DICTATION DATE: 01/01/20728 DRYWALL CARRIER: 01/01/20 1235 ADM IN [facility] [address] [place] [address]
--- NOTE | 2020-01-01 14:15 | MORECARE ---
CASE MANAGEMENT DISCHARGE SUMMARY PATIENT: KIM VILLAFUERTE AARTI UNIT: [id number] ADM DATE: 12/30/19 AGE: 79 : 44 SEX: F ROOM/BED: D.1212 AUTHOR: STEVO,DOC PHYSICIAN: REFERRING PHYSICIAN: NIKO GAYTAN MD DATE OF SERVICE: 01/01/20 Discharge Plan Patient Name: KIM VILLAFUERTE Facility: [facility]:[place] : 1940 Planned Disposition: Anticipated Discharge Date: Discharge Date: Expected LOS: Initial Reviewer: [email or web address] Initial Review Date: 12/30/2019 Generated: 01/01/20 3:14 pm Comments DCP- Discharge Planning Updated by [email or web address]: Leslie Westbrook on 01/01/20 1:[address] CB from [facility], [facility], and patient has been accepted to [facility] for a SNF stay. Patient's nurse made aware of same. DCP- Discharge Planning Updated by [email or web address]: Leslie Westbrook on 12/31/19 1:[address] CB from [facility]. Le states the facility will not have a bed available until next week. ZAHIRA contacted [facility], with the [facility] and faxed required information, pending insurance authorization. CM met with patient again, today for DC plans. Patient is in agreement to go into a SNF, her choice id [facility]. Patient choice has been signed. ZAHIRA contacted [facility] ([phone])[facility] and faxed the required documentation. Await CB. Patient states that she would really like to walk from her apartment to [facility]. Patient has [employer] 2H/day, 3D/week prior to admission. CM dissuaded patient from walking to therapy , at least until she goes through her therapy and returns for her follow-up appointment. Patient agrees to same. DCP- Discharge Planning Updated by [email or web address]: Leslie Westbrook on 12/30/19 1:[address] CM met with patient, who is still drowsy, to discuss DC plans. Patient is in agreement to same. PCP: Dr. Robert Silva. Pharmacy[facility]. Patient lives independently at [facility], alone. DME: Emergency call maurer, walker, cane, CPM, BSC, Shower chair, hand held shower. Emergency contact: Nicolás Villafuerte (son) [phone]. CM discussed HHS, OP Therapy, SNF, Rehab. Patient states that she plans to go to [facility] for OP Therapy. When questioned about transportation, patient reports "I'll walk there." Patient reports that she does not want to go into a SNF due to the COVID virus. CM will revisit tomorrow, when the patient is more alert and discuss DC plans again. DCPIA - Discharge Planning Initial Assessment Updated by [id number]: Leslie Westbrook on 12/30/19 2:22 pm * Is the patient Alert and Oriented? Yes * How many steps to enter\\exit or inside your home? * PCP Dr. Robert Nichole. * Pharmacy [facility] * Preadmission Environment Home Alone * ADLs Independent * Equipment Bedside Commode Cane Grab Bars Rolling Walker Tub Bench Walker * Other Equipment CPM * List name and contact numbers for known caregivers / representatives who currently or will assist patient after discharge: Nicolás Villafuerte [phone] * Verbal permission to speak to the caregivers and representatives has been obtained from the patient. Yes * Additional services required to return to the preadmission environment? Yes * Can the patient safely return to the preadmission environment? No * Has this patient been hospitalized within the prior 30 days at any hospital? No Coverage Notice Reviewer: [id number] - Leslie Westbrook Notice Issued Date-Time: 12/31/2019 14:34 Notice Type: Patient Choice Letter Notice Delivered To: Patient Relationship to Patient: Self Vehicle Upholsterer Name: Kim Villafuerte Delivery Method: HAND - Hand Delivered Cynthia Days: Prior Verbal Notification: Recipient Understood Notice: Yes Recipient Signature: Yes Med Rec Note Co-signed by Attending: Coverage Notice Comment: #1 [facility], #2 [facility] Last DP export: 12/31/19 1:38 p Patient Name: KIM VILLAFUERTE Page [phone] at 1415 All edits/amendments must be made on the electronic document DICTATION DATE: 01/01/201413 PACKAGER HAND: VIKTOR 01/01/20 1414 RPT#: [id number] DC DATE: STATUS: ADM IN [facility] [address] [place] [address] END OF REPORT
--- NOTE | 2020-01-01 15:12 | NUR ---
OT NOTE: PT COMPLETED BSC TO BED TSF WITH MAX A. PT COMPLETED SIT TO SUPINE WITH MAX A. PT COMPLETED TOILET HYGIENE WITH MAX A. PT REQUIRED MAX A FOR RENE UNDERGARMENT. [phone] THANK YOU,CINDY FRASER
[2020-01-01 15:32] LABS: BILIRUBIN NEGATIVE (NEGATIVE); KETONE NEGATIVE (NEGATIVE); NITRITE NEGATIVE (NEGATIVE); UROBILINOGEN NORMAL mg/dL (< 2)
--- NOTE | 2020-01-01 19:30 | NUR ---
REPORT GIVEN BY REGAN RODRIGUEZ
[2020-01-01 19:45] VITALS: BP 147/62
--- NOTE | 2020-01-01 20:00 | NUR ---
ASSESSMENT COMPLETED. NO NEW C /O AT THIS TIME
--- NOTE | 2020-01-02 | NUR ---
PT IS RESTING QUIETLY. SHE IS WHEEZING SOME. O2 IN PLACE RT HAS SEEN PT.
[2020-01-02 00:16] VITALS: BP 178/78
--- NOTE | 2020-01-02 01:52 | NUR ---
PT IS NOW ON 10 L O2 WITH SATS IN THE HIGH 80'S. RT WAS CALLED TO SEE PT. DR. REDMAN WAS CONSULTED. SPOKE WITH AILYN CALLAHAN, WHO WROTE ORDERS FOR THIS PT. SHE IS HAVING ABG'S, BLOOD CULTURES, URINE CULTURE. RESPIRATORY HAS SPOKEN TO DR. PARK.
--- NOTE | 2020-01-02 02:30 | NUR ---
STAT LABS HAVE BEEN DRAWN. O2 TURNED DOWN TO 4 L/NC ABGS WERE GOOD. RT CALLED DR. REDMAN TO LET HIM KNOW
[2020-01-02 03:02] LABS: BASOPHILS 0.2 % (0-2); EOSINOPHILS 1.4 % (0-7); HEMATOCRIT 33.6 % (36.0-48.0); HEMOGLOBIN 10.5 g/dL (12-16); IMMATURE GRANULOCYTES 0.7 % (0-5); LYMPHOCYTES 12.9 % (15-50); MCH 28.6 pg (26.0-34.0); MCHC 31.3 g/dL (31.0-37.0); MCV 91.6 fL (80.0-100.0); MEAN PLATELET VOLUME 10.5 fL (7.4-10.4); MONOCYTES 10.6 % (2-11); NEUTROPHILS 74.2 % (40-80); PLATELET COUNT 154 10x3/uL (130-400); RBC 3.67 10x6/uL (4.00-5.40); RDW 15.1 % (11.5-14.5); WBC 12.5 10x3/uL (4.8-10.8)
[2020-01-02 03:04] LABS: INR 1.3 (0.85-1.17); PROTIME 16.1 SECONDS (11.6-15.0)
[2020-01-02 03:21] LABS: ALBUMIN 2.4 g/dL (3.4-5.0); ANION GAP 7.7 mmol/L (8-16); BILIRUBIN - TOTAL 0.58 mg/dL (0.2-1.3); CALCIUM 8.3 mg/dL (8.5-10.1); CARBON DIOXIDE 30.4 mmol/L (21.0-32.0); CREATININE - SERUM 1.1 mg/dL (0.6-1.3); MAGNESIUM - SERUM 1.6 mg/dL (1.8-2.4); PHOSPHOROUS 1.6 mg/dL (2.5-4.9); POTASSIUM - SERUM 4.1 mmol/L (3.5-5.1); PROTEIN - SERUM 6.7 g/dL (6.4-8.2)
[2020-01-02 03:25] LABS: BILIRUBIN NEGATIVE (NEGATIVE); KETONE NEGATIVE (NEGATIVE); NITRITE NEGATIVE (NEGATIVE); UROBILINOGEN NORMAL mg/dL (< 2)
[2020-01-02 03:26] LABS: BACTERIA FEW HPF (NONE SEEN); EPITHELIAL CELLS 0-5 /hpf (0-5); WHITE CELLS - URINE 0-5 HPF (0-4)
--- NOTE | 2020-01-02 04:00 | NUR ---
PT SATS DOWN IN THE 80'S AGAIN. PT WAS PUT ON 7 L O2 TO GET O2 SATS BACK TO 90.
--- NOTE | 2020-01-02 05:35 | NUR ---
CPM ON PT.
--- NOTE | 2020-01-02 07:45 | NUR ---
PT RESTING IN BED, CPM IN PLACE. PT O2@7LPM. IV TO RT FA IS PATENT AND S'LOCKED. PT DENIES NEEDS AT THIS TIME. WCTM.
[2020-01-02 08:30] VITALS: BP 158/84
--- NOTE | 2020-01-02 09:34 | NUR ---
PT UP WITH THERAPY. PAIN MEDICINE GIVEN. TYLENOL GIVEN FOR 100.0 T. WCTM.
--- NOTE | 2020-01-02 10:33 | NUR ---
Rehab Note- Received an inpatient acute rehab prescreen order, upon review of her chart she has been accepted to [facility] for SNF stay as she has also been there before in the past. She would have to have a PreAuth prior to an inpatient acute rehab stay. Spoke w/ REGAN Newman and verified dc plan to SNF at this time. THank you for this referral! Alejandra Villalobos RN Clinical Liaison, [facility]
--- NOTE | 2020-01-02 10:35 | MORECARE ---
CASE MANAGEMENT DISCHARGE SUMMARY PATIENT: CHAITANYA VILLAFUERTE AARTI UNIT: [id number] ADM DATE: 12/30/19 AGE: 79 : 42 SEX: F ROOM/BED: D.1212 AUTHOR: STEVO,DOC PHYSICIAN: REFERRING PHYSICIAN: NIKO GAYTAN MD DATE OF SERVICE: 01/02/20 Discharge Plan Patient Name: CHAITANYA VILLAFUERTE Facility: [facility]:[place] : 1940 Planned Disposition: Anticipated Discharge Date: Discharge Date: Expected LOS: Initial Reviewer: [id number] Initial Review Date: 12/30/2019 Generated: 01/02/20 11:35 am Comments DCP- Discharge Planning Updated by [id number]: Marilin Russell on 01/02/20 9:[address] UPDATED CLINICAL FAXED TO MALATHI AT THE [facility] AND VERBAL REPORT GIVEN. DCP- Discharge Planning Updated by [id number]: Leslie Westbrook on 01/01/20 1:[address] CB from [facility], [facility], and patient has been accepted to [facility] for a SNF stay. Patient's nurse made aware of same. DCP- Discharge Planning Updated by [id number]: Leslie Westbrook on 12/31/19 1:[address] CB from [facility]. Le states the facility will not have a bed available until next week. ZAHIRA contacted [facility], with the [facility] and faxed required information, pending insurance authorization. ZAHIRA met with patient again, today for DC plans. Patient is in agreement to go into a SNF, [facility] choice id [facility]. Patient choice has been signed. ZAHIRA contacted [facility] ([phone])[facility] and faxed the required documentation. Await CB. Patient states that she would really like to walk from her apartment to [place] therapy. Patient has [facility] 2H/day, 3D/week prior to admission. CM dissuaded patient from walking to therapy , at least until she goes through her therapy and returns for her follow-up appointment. Patient agrees to same. DCP- Discharge Planning Updated by [id number]: Leslie Westbrook on 12/30/19 1:[address] CM met with patient, who is still drowsy, to discuss DC plans. Patient is in agreement to same. PCP: Dr. Robert Silva. Pharmacy[facility]. Patient lives independently at [facility], alone. DME: Emergency call maurer, walker, cane, CPM, BSC, Shower chair, hand held shower. Emergency contact: Nicolás Villafuerte (son) [phone]. CM discussed HHS, OP Therapy, SNF, Rehab. Patient states that she plans to go to [facility] for OP Therapy. When questioned about transportation, patient reports "I'll walk there." Patient reports that she does not want to go into a SNF due to the COVID virus. CM will revisit tomorrow, when the patient is more alert and discuss DC plans again. DCPIA - Discharge Planning Initial Assessment Updated by [id number]: Leslie Westbrook on 12/30/19 2:22 pm * Is the patient Alert and Oriented? Yes * How many steps to enter\\exit or inside your home? * PCP Dr. Robert Nichole. * Pharmacy [facility] * Preadmission Environment Home Alone * ADLs Independent * Equipment Bedside Commode Cane Grab Bars Rolling Walker Tub Bench Walker * Other Equipment CPM * List name and contact numbers for known caregivers / representatives who currently or will assist patient after discharge: Nicolás Villafuerte [phone] * Verbal permission to speak to the caregivers and representatives has been obtained from the patient. Yes * Additional services required to return to the preadmission environment? Yes * Can the patient safely return to the preadmission environment? No * Has this patient been hospitalized within the prior 30 days at any hospital? No Coverage Notice Reviewer: [id number] - Leslie Westbrook Notice Issued Date-Time: 12/31/2019 14:34 Notice Type: Patient Choice Letter Notice Delivered To: Patient Relationship to Patient: Self Head Teacher Name: Chaitanya Villafuerte Delivery Method: HAND - Hand Delivered Cynthia Days: Prior Verbal Notification: Recipient Understood Notice: Yes Recipient Signature: Yes Med Rec Note Co-signed by Attending: Coverage Notice Comment: #1 [facility], #2 [facility] Last DP export: 01/01/20 1:15 p Patient Name: CHAITANYA VILLAFUERTE Page [phone] at 1035 All edits/amendments must be made on the electronic document DICTATION DATE: 01/02/20 1035 FINNISH RUBBER: VIKTOR 01/02/20 1035 RPT#: [id number] DC DATE: STATUS: ADM IN [facility] [address] [place] [address] END OF REPORT
--- NOTE | 2020-01-02 11:26 | NUR ---
TEMP RECHECK 98.6
--- NOTE | 2020-01-02 12:42 | NUR ---
OT NOTE: MOD ASSIST X 2 FOR SUPINE TO SIT..EXTENSIVE ASSIST WITH LE MGMT. SIT TO STAND WITH MAX ASSIST X 2; TRANSFERRED TO TOILET WITH MAX ASSIST AND USE OF WALKER.. PT BARELY MADE THE TRANSFER AND REPORTING SEVERE PAIN IN L KNEE AND ALSO PAIN IN R KNEE. WHILE PT ON BS COMMODE, SHE WAS ABLE TO WASH FACE, HANDS, UES, CHEST, AND UNDER ARMS. MAX ASSIST WITH BACK AND PERINEAL AREA. SIT TO STAND WITH MAX ASSIST; MAX ASSIST X2 TO TRANSFER BACK TO BED. ALLOWED PT TO SIT UP ON EOB AND REST PRIOR TO ATTEMPTS TO TRANSFER TO CHAIR. SIT TO STAND WITH MAX ASSIST BUT UNABLE TO TRANSFER TO CHAIR DUE TO PAIN AND WEAKNESS. ASSISTED PT BACK TO BED. NOTICED THE BANDAGE OVER L KNEE HAD HARDENED WITH BLOOD CAUSING PRESSURE TO L KNEE AND INABILITY FOR HER TO BEND L KNEE MADYSON KO, OTR/L [phone]
[2020-01-02 13:04] VITALS: BP 136/62
[2020-01-02 16:25] VITALS: BP 127/66
--- NOTE | 2020-01-02 22:29 | NUR ---
OT NOTE: PT C/O PAIN IN LE.PT REQUIRED MOD/MAX A SIMPLE SIDE ROLLING IN BED. PT COMPLETED UE AROM TOLERATED. [phone] THANK YOU,CINDY FRASER
--- NOTE | 2020-01-02 23:03 | NUR ---
RECEIVED PATIENT. PATIENT IS WEAK. LABORED BREATHING, SHE IS ON OXYGEN, SHE DOES NOT ALWAYS KEEP IT ON, ENCOURAGED AND EDUCATED HER TO KEEP IT ON. HER BLOOD PRESSURE AND HEART RATE IS ELEVATED. AILYN CALLAHAN CALLED AND INFORMED HIM OF HER VITAL SIGNS AND THAT SHE WASN'T "LOOKING GOOD" AND INFORMED HIM THAT HER LOPRESSOR AND NORVASC HAS NOT BEEN RESTARTED SINCE HER SURGERY. HE RESTARTED THOSE TWO MEDS BACK. LOPRESSOR WAS GIVEN PO TO PATIENT. WILL MONITOR PATIENT
--- NOTE | 2020-01-03 00:10 | NUR ---
RESP. PLACED PATIENT ON BIPAP @ 50%. OXYGEN SATURATION INCREASED TO 92 PERCENT. SHE AGREED TO FEELING BETTER. BED LINEN CHANGE DUE TO URINARY INCONTENCE. TOLERATED WELL.
[2020-01-03 00:32] VITALS: BP 173/83
[2020-01-03 06:35] VITALS: BP 154/63
[2020-01-03 07:16] LABS: INR 1.43 (0.85-1.17); PROTIME 17.3 SECONDS (11.6-15.0)
[2020-01-03 07:23] LABS: ALBUMIN 2.2 g/dL (3.4-5.0); ANION GAP 8.1 mmol/L (8-16); BASOPHILS 0.2 % (0-2); BILIRUBIN - TOTAL 0.51 mg/dL (0.2-1.3); CALCIUM 8.4 mg/dL (8.5-10.1); CARBON DIOXIDE 32.9 mmol/L (21.0-32.0); CREATININE - SERUM 1.1 mg/dL (0.6-1.3); HEMATOCRIT 29.9 % (36.0-48.0); HEMOGLOBIN 9.1 g/dL (12-16); IMMATURE GRANULOCYTES 0.9 % (0-5); LYMPHOCYTES 13.8 % (15-50); MAGNESIUM - SERUM 1.9 mg/dL (1.8-2.4); MCH 27.8 pg (26.0-34.0); MCHC 30.4 g/dL (31.0-37.0); MCV 91.4 fL (80.0-100.0); MEAN PLATELET VOLUME 11.7 fL (7.4-10.4); MONOCYTES 9.6 % (2-11); NEUTROPHILS 73.5 % (40-80); PROTEIN - SERUM 6.6 g/dL (6.4-8.2); RBC 3.27 10x6/uL (4.00-5.40); RDW 15.3 % (11.5-14.5); WBC 13.2 10x3/uL (4.8-10.8)
[2020-01-03 07:25] LABS: PLATELET COUNT 196 10x3/uL (130-400)
--- NOTE | 2020-01-03 07:28 | NUR ---
PT AWAKE AND ALERT. LAYING ON BACK. CPM ON. CL IN REACH. BED ALARM ON. WCTM
[2020-01-03 08:12] VITALS: BP 135/43
--- NOTE | 2020-01-03 10:45 | NUR ---
OT NOTE: PT DOING BETTER TODAY. CONTINUES TO REQUIRE MAX ASSIST X 2 WITH BED MOB BUT MOD ASSIST TO SCOOT TO EOB. SITTING BALANCE WAS BETTER. SIT TO STAND WITH WALKER AND MOD ASSIST; PT ABLE TO TRANSFER WITH USE OF WALKER AND MOD ASSIST TODAY. (PT WAS UNABLE TO PERFORM THIS YESTERDAY DUE TO PAIN AND SOB). PT WITH INCONT EPISODE DURING TRANSFER.. PLACED PAD IN CHAIR AND PT SITTING UP IN CHAIR. ABLE TO WASH FACE AND HANDS WITH SET UP AFTER 3-4 MIN REST BREAK. REMOVED R COMPRESSION SOCK AND CLEANED R LE AND REPLACED WITH CLEAN COMP SOCK( WHEN PT URINATED IT RAN DOWN HER LEG AND WET SOCK). PT REPORTS THAT HER PAIN IS BETTER THAN YESTERDAY. MADYSON KO, OTR/L [phone]
[2020-01-03 11:26] VITALS: BP 135/56
[2020-01-03 16:01] VITALS: BP 115/42
--- NOTE | 2020-01-03 16:21 | NUR ---
SPOKE WITH RT ABOUT DR MILLER WANTING PT BIPAP EPAP TURNED TO 03/08.
--- NOTE | 2020-01-03 18:28 | NUR ---
PT INCONTINENT OF URINE. FULL BED LINEN CHANGED. PUREWICK PLACED FOR HELP IN COLLECTING URINE OUTPUT. CALL LIGHT IN REACH
[2020-01-03 18:51] VITALS: BP 129/56
[2020-01-04] VITALS: BP 152/66
[2020-01-04 04:00] VITALS: BP 148/59
[2020-01-04 04:46] LABS: BASOPHILS 0.3 % (0-2); EOSINOPHILS 3.9 % (0-7); HEMATOCRIT 29.8 % (36.0-48.0); HEMOGLOBIN 9.2 g/dL (12-16); IMMATURE GRANULOCYTES 0.9 % (0-5); LYMPHOCYTES 15.6 % (15-50); MCH 28.1 pg (26.0-34.0); MCHC 30.9 g/dL (31.0-37.0); MCV 91.1 fL (80.0-100.0); MEAN PLATELET VOLUME 11.5 fL (7.4-10.4); MONOCYTES 9.5 % (2-11); NEUTROPHILS 69.8 % (40-80); PLATELET COUNT 187 10x3/uL (130-400); RBC 3.27 10x6/uL (4.00-5.40); RDW 15.4 % (11.5-14.5); WBC 12.9 10x3/uL (4.8-10.8)
[2020-01-04 04:53] LABS: ANION GAP 8.4 mmol/L (8-16); CALCIUM 8.2 mg/dL (8.5-10.1); CARBON DIOXIDE 30.1 mmol/L (21.0-32.0); CREATININE - SERUM 1.1 mg/dL (0.6-1.3); POTASSIUM - SERUM 4.5 mmol/L (3.5-5.1)
[2020-01-04 04:58] LABS: INR 1.85 (0.85-1.17); PROTIME 21.1 SECONDS (11.6-15.0)
[2020-01-04 05:08] LABS: ALBUMIN 2.1 g/dL (3.4-5.0); BILIRUBIN - TOTAL 0.58 mg/dL (0.2-1.3); PROTEIN - SERUM 6.5 g/dL (6.4-8.2)
--- NOTE | 2020-01-04 06:39 | NUR ---
ASSESSED AT THE BEGINNING OF THE SHIFT. PT IS ALERT AND ORIENTED, ABLE TO VERBALIZE NEEDS. SHE HAS BEEN PLEASANT AND COOPERATIVE. HER HS MEDS WERE GIVEN AND HER BLOOD SUGAR WAS 334 WHICH WAS COVERED BY SLIDING SCALE. AT JUST AFTER MIDNIGHT HER BLOOD SUGAR SHOWED 402 AND THE RETAKE WAS 411. AT THIS POINT SHE WAS GIVEN 28 UNITS. WHEN WE TOOK HER 0400 BLOODSUGAR IT WAS PER GLUCOMETER 415. LAB WAS ASKED TO COME DRAW A STAT GLUCOSE AND WHEN IT CAME BACK IT WS 367,NOW SHE WAS GIVEN 24 UNITS OF SLIDING SCALE AND HOPEFULLY IT WILL CONTINUE TO DROP. SHE HAD A LITTLE TROUBLE WITH HER O2 SAT'S THIS MORNING BUT AFTER CALLING RT AND GETTING A TREATMENT SHE DID BETTER. WE NOW HAVE HER ON THE CPM MACHINE AND HER HAS A PUREWICK WHICH IS HELPING KEEP HER DRY.
[2020-01-04 08:12] VITALS: BP 147/87
--- NOTE | 2020-01-04 10:00 | NUR ---
PT RESTING IN BED. O2 @ 7.5L HIFLO IN PLACE. BECOMES SOB WITH EXERTION. REPORTS PAIN 3/10 AT THIS TIME. IV LEFT WRIST SALINE LOC'D. SITE WITHOUT REDNESS OR EDEMA. DRESSING C/D/I TO LEFT LOWER EXTREMITY. DENIES FURTHER NEEDS AT THIS TIME. CL WITHIN REACH. ENCOURAGED TO CALL WITH NEEDS. CONTINUE POC
--- NOTE | 2020-01-04 11:17 | CN ---
PATIENT NAME:CHAITANYA RICKS MEDICAL RECORD: [id number] : 44 LOCATION:D. D.1212 ADMIT DATE: 12/30/19 ACCOUNT: [id number] CONSULTING PHYSICIAN: JUSTIN HALL MD REFERRING PHYSICIAN: NIKO GAYTAN MD DATE OF CONSULTATION: 01/03/2020 HISTORY OF PRESENT ILLNESS: A 79-year-old female with a history of aortic valve disease, status post aortic valve replacement at [facility]. She has done fairly well since that time, was seen preoperatively by her regular bread oven operator as status post total knee replacement has been having problems with volume overload. From a clinical standpoint, she has a baseline shortness of breath. I suspect some of this due to deconditioning, morbid obesity secondary to inactivity. We are asked to see her concerning her cardiovascular status. PAST MEDICAL HISTORY: Includes: 1. History of hypertension. 2. Osteoarthritis, status post total knee replacement. 3. Aortic valve disease, status post replacement. 4. Diabetes mellitus. 5. Dyslipidemia, STATIN INTOLERANT. ALLERGIES: INCLUDE STATINS, MORPHINE, PHENERGAN. MEDICATIONS: Include insulin per scale, warfarin per scale, aspirin 81 q. day, Paxil 40 q. day, amlodipine 15 q. day, metoprolol 25 b.i.d. SOCIAL HISTORY: Lives at home, nonsmoker, nondrinker, is able to take care of all her ADLs. No set exercise program. REVIEW OF SYSTEMS: The patient reports easy bruising but reports no swollen glands. The patient reports no fever, no night sweats, no significant weight gain, no significant weight loss. No significant exercise tolerance. The patient reports no dry eyes, no irritation, no vision change. Patient reports no difficulty hearing and no ear pain. Patient reports no frequent nose bleeds or nose and sinus problems. Patient reports no arm pain on exertion. No shortness of breath while lying down. No history of heart murmur. Patient reports no cough, no wheezing or coughing up blood. Patient reports no abdominal pain, no vomiting. Normal appetite. No diarrhea and not vomiting blood. No nausea and no constipation. Patient reports no incontinence. No difficulty urinating. No hematuria. No increased frequency. Patient reports no muscle aches. No weakness, no arthralgias, no back pain. No swelling of the extremities. Patient reports no abnormal mole, no jaundice, no rashes. Reports no loss of consciousness. No weakness and no numbness. No seizures, dizziness, or headaches. The patient reports no depression, no sleep disturbance, feeling safe in a relationship and no alcohol abuse. Patient reports no fatigue. Reports no runny nose or sinus pressure. No itching, no hives, and no frequent sneezing. PHYSICAL EXAMINATION: GENERAL: Obese female, in no acute distress, appears stated age. VITAL SIGNS: 135/43, pulse 73 and regular. HEENT: Normocephalic, atraumatic. NECK: No bruits are noted. No JVD. HEART: Regular. II/ systolic ejection murmur. CONSULT REPORT [id number] CHAITANYA RICKS LUNGS: Fairly good air excursion. Decreased breath sounds bilaterally. ABDOMEN: Soft, nontender. EXTREMITIES: Pulses well preserved, 2+. There is no edema. IMPRESSION: Volume overload, multifactorial; mildly anemic, hypoalbuminemic. LV function was normal previous echo. We will recheck this. Continue Coumadin loading as you are doing. We will increase loop diuretic. We will provide more volume removal. Further recommendations based on clinical course. NTS:[id number] Voice Confirmation ID: [id number] DOCUMENT ID: [id number] JUSTIN HALL MD at 1117 CC: [id number] DICTATION DATE: 01/03/20 1028 B2B SALES REPRESENTATIVE: 01/03/201937 ADM IN [facility] [address] [place] [address]
[2020-01-04 11:41] VITALS: BP 134/68
--- NOTE | 2020-01-04 15:00 | NUR ---
DRESSING CHANGED TO LEFT KNEE PER DR RAMIREZ REQUEST. RAZIA INTACT TO LEFT LOWER EXTREMITY, NO REDNESS NOTED. MINIMAL OLD DRAINAGE NOTED TO OLD DRAINAGE NOTED TO OLD DRESSING. APPLIED MEPILEX AG TO INCISION SITE AND WRAPPED WITH RAFY WRAP. PT ABISAI WELL
--- NOTE | 2020-01-04 17:45 | NUR ---
CPM PLACED TO PT LEFT LOWER EXTREMITY
--- NOTE | 2020-01-04 19:43 | NUR ---
PATIENT RESTING IN BED WITH NO S/S OF DISTRESS. PATIENT DENIES NEEDS AT THIS TIME. BED IN LOWEST POSITION AND CALL LIGHT WITHIN REACH. ENCOURAGED THE PATIENT TO CALL IF SHE HAS NEEDS.
--- NOTE | 2020-01-04 20:54 | NUR ---
ADMINISTERED MEDS PER ORDERS. DENIES OTHER NEEDS. WILL CONTINUE TO MONITOR.
[2020-01-04 21:35] VITALS: BP 136/46
[2020-01-05] VITALS: BP 113/53
[2020-01-05 04:00] VITALS: BP 154/54
[2020-01-05 06:49] LABS: ALBUMIN 2.2 g/dL (3.4-5.0); ANION GAP 12.5 mmol/L (8-16); BILIRUBIN - TOTAL 0.63 mg/dL (0.2-1.3); CALCIUM 8.1 mg/dL (8.5-10.1); CREATININE - SERUM 0.8 mg/dL (0.6-1.3); POTASSIUM - SERUM 4.5 mmol/L (3.5-5.1); PROTEIN - SERUM 6.2 g/dL (6.4-8.2)
--- NOTE | 2020-01-05 07:35 | NUR ---
LYING IN BED W/EYES CLOSED, RESP EVEN AND UNLABORED /02 IN PROGRESS/ORDER, NO DISTRESS NOTED.
[2020-01-05 08:00] VITALS: BP 136/67
[2020-01-05 08:46] LABS: HEMATOCRIT 32.5 % (36.0-48.0); HEMOGLOBIN 10.1 g/dL (12-16); MCHC 31.1 g/dL (31.0-37.0); MEAN PLATELET VOLUME 12.2 fL (7.4-10.4); PLATELET COUNT 236 10x3/uL (130-400); RBC 3.61 10x6/uL (4.00-5.40); RDW 15.2 % (11.5-14.5); WBC 12.3 10x3/uL (4.8-10.8)
[2020-01-05 09:23] LABS: BASOPHILS 1 % (0-2); EOSINOPHILS 6 % (0-7); LYMPHOCYTES 13 % (15-50); MONOCYTES 1 % (2-11); NEUTROPHILS 75 % (40-80); PLATELET ESTIMATE NORMAL
[2020-01-05 09:24] LABS: ANISOCYTOSIS 1+
--- NOTE | 2020-01-05 09:28 | NUR ---
0815-CPM COMPLETE, MACHINE OFF AND REMOVED FROM BED, BREAKFAST SERVED, AM MEDS ADMINISERED, BS TREATED/SS. PT DENIES ANY FURTHER NEEDS AT THIS TIME. TOLERATED ALL WELL.
--- NOTE | 2020-01-05 12:40 | NUR ---
1100-PT HAD LARGE BM WHILE IN BED--CLEANSED PT AND ASSISTED UP TO POTTY CHAIR W/WALKER AND ASSIST FROM PHYSICAL THERAPY--PT THEN HAD ANOTHER BM--CLEANSED PT PLACED A CLEAN GOWN THEN ASSISTED FROM POTTY CHAIR TO RECLINING CHAIR--INFORMED PT THAT WE WILL TRY TO SIT UP IN RECLINING UNTIL AFTER LUNCH W/UNDERSTANDING STATED TO ALL. CLEAN PURE WICK GIVEN, LEFT LEG PROPPED ONTO A PILLOW FOR COMFORT, CB AND ALL OTHER NEEDED ITEMS ARE NEAR. NO FURTHER NEEDS VOICED AT THIS TIME.
[2020-01-05 13:35] LABS: INR 2.21 (0.85-1.17); PROTIME 24.2 SECONDS (11.6-15.0)
[2020-01-05 16:22] VITALS: BP 166/72
--- NOTE | 2020-01-05 19:00 | NUR ---
CLEANED PATIENT UP WITH DAYSHIFT NURSE AFTER PATIENT HAD INCONTINENT EPISODE. PLACED PATIENT ON CPM TO LEFT KNEE. PATIENT DENIES OTHER NEEDS. ENCOURAGED TO CALL IF SHE HAS NEEDS. WILL CONTINUE TO MONITOR.
[2020-01-05 20:00] VITALS: BP 167/62
--- NOTE | 2020-01-05 21:42 | NUR ---
ADMINISTERED MEDS PER ORDERS. WILL ORDER STAT BLOOD GLUCOSE. PATIENT DENIES OTHER NEEDS. WILL CONTINUE TO MONITOR.
--- NOTE | 2020-01-05 22:46 | NUR ---
CALLED LAB IN [facility] TO STAT GLUCOSE. THEY ARE STILL WAITING TO RECEIVE BLOOD SAMPLE.
[2020-01-06] VITALS: BP 145/49
[2020-01-06 04:00] VITALS: BP 176/64
--- NOTE | 2020-01-06 05:30 | NUR ---
PLACED PATIENT ON CPM TO LEFT KNEE
[2020-01-06 05:54] LABS: BASOPHILS 0.2 % (0-2); EOSINOPHILS 2.3 % (0-7); HEMATOCRIT 32.8 % (36.0-48.0); IMMATURE GRANULOCYTES 1.4 % (0-5); MCH 27.7 pg (26.0-34.0); MCHC 30.5 g/dL (31.0-37.0); MCV 90.9 fL (80.0-100.0); MEAN PLATELET VOLUME 11.5 fL (7.4-10.4); MONOCYTES 8.5 % (2-11); NEUTROPHILS 68.6 % (40-80); PLATELET COUNT 269 10x3/uL (130-400); RBC 3.61 10x6/uL (4.00-5.40); RDW 15.5 % (11.5-14.5)
[2020-01-06 06:13] LABS: ALBUMIN 2.2 g/dL (3.4-5.0); BILIRUBIN - TOTAL 0.58 mg/dL (0.2-1.3); CALCIUM 8.4 mg/dL (8.5-10.1); CARBON DIOXIDE 36.7 mmol/L (21.0-32.0); PROTEIN - SERUM 6.8 g/dL (6.4-8.2)
[2020-01-06 06:20] LABS: PROTIME 28.6 SECONDS (11.6-15.0)
[2020-01-06 06:21] LABS: CREATININE - SERUM 1.2 mg/dL (0.6-1.3)
[2020-01-06 06:22] LABS: POTASSIUM - SERUM 3.7 mmol/L (3.5-5.1)
[2020-01-06 06:55] LABS: INR 2.74 (0.85-1.17)
--- NOTE | 2020-01-06 06:55 | NUR ---
RESTING IN BED WITH EYES CLOSED. RESPIRATIONS EVEN AND UNLABORED. NO S/S OF ACUTE DISTRESS NOTED. POD #7 LTK, DRESSING C/D/I. TEDS AND SCDS ON. ON 5L, HF. IV TO LEFT WRIST, SL. SITE PATENT WITHOUT REDNESS OR SWELLING. CPM ON. CALL LIGHT IN REACH. WILL CONTINUE TO MONITOR.
[2020-01-06 09:05] VITALS: BP 144/69
--- NOTE | 2020-01-06 10:22 | MORECARE ---
CASE MANAGEMENT DISCHARGE SUMMARY PATIENT: CHAITANYA VILLAFUERTE AARTI UNIT: [id number] ADM DATE: 12/30/19 AGE: 79 : 44 SEX: F ROOM/BED: D.2236 AUTHOR: STEVO,DOC PHYSICIAN: REFERRING PHYSICIAN: NIKO GAYTAN MD DATE OF SERVICE: 01/06/20 Discharge Plan Patient Name: CHAITANYA VILLAFUERTE Facility: [facility]:[place] : 1940 Planned Disposition: Anticipated Discharge Date: Discharge Date: Expected LOS: Initial Reviewer: [email or web address] Initial Review Date: 12/30/2019 Generated: 01/06/20 11:21 am Comments DCP- Discharge Planning Updated by [id number]: Le Mark on 01/06/20 9:[address] Patient Name: CHAITANYA VILLAFUERTE Admission Status: Elective Accout number: [id number] Admission Date: 12-30-2019 : 1940 Admission Diagnosis:UNILATERAL PRIMARY OSTEOARTHRITIS, LEFT KNEE Attending: NIKO GAYTAN Current LOS: 7 Anticipated DC Date: Planned Disposition: Primary Insurance: [facility] [employer] Discharge Planning Comments: UPDATE FAXED TO THE [facility]. WAITING CALL BACK. Senior Chemist: Le Mark DCP- Discharge Planning Updated by [id number]: Marilin Russell on 01/02/20 9:[address] UPDATED CLINICAL FAXED TO MALATHI AT THE [facility] AND VERBAL REPORT GIVEN. DCP- Discharge Planning Updated by [email or web address]: Leslie Westbrook on 01/01/20 1:[address] CB from [facility], and patient has been accepted to [facility] for a SNF stay. Patient's nurse made aware of same. DCP- Discharge Planning Updated by [id number]: Leslie Westbrook on 12/31/19 1:[address] CB from [facility]. Le states the facility will not have a bed available until next week. ZAHIRA contacted Michelle, with the [facility] and faxed required information, pending insurance authorization. ZAHIRA met with patient again, today for DC plans. Patient is in agreement to go into a SNF, her choice id [facility]. Patient choice has been signed. ZAHIRA contacted [facility] ([phone]), [facility] and faxed the required documentation. Await CB. Patient states that she would really like to walk from her apartment to [facility] therapy. Patient has [facility] 2H/day, 3D/week prior to admission. CM dissuaded patient from walking to therapy , at least until she goes through her therapy and returns for her follow-up appointment. Patient agrees to same. DCP- Discharge Planning Updated by [id number]: Leslie Westbrook on 12/30/19 1:[address] CM met with patient, who is still drowsy, to discuss DC plans. Patient is in agreement to same. PCP: Dr. Robert Silva. [facility]acy: [facility]. Patient lives independently at [facility], alone. DME: Emergency call maurer, walker, cane, CPM, BSC, Shower chair, hand held shower. Emergency contact: Nicolás Villafuerte (son) [phone]. CM discussed HHS, OP Therapy, SNF, Rehab. Patient states that she plans to go to [facility] for OP Therapy. When questioned about transportation, patient reports "I'll walk there." Patient reports that she does not want to go into a SNF due to the COVID virus. CM will revisit tomorrow, when the patient is more alert and discuss DC plans again. DCPIA - Discharge Planning Initial Assessment Updated by [id number]: Leslie Westbrook on 12/30/19 2:22 pm * Is the patient Alert and Oriented? Yes * How many steps to enter\\exit or inside your home? * PCP Dr. Robert Nichole. * Pharmacy [facility] * Preadmission Environment Home Alone * ADLs Independent * Equipment Bedside Commode Cane Grab Bars Rolling Walker Tub Bench Walker * Other Equipment CPM * List name and contact numbers for known caregivers / representatives who currently or will assist patient after discharge: Nicolás Villafuerte [phone] * Verbal permission to speak to the caregivers and representatives has been obtained from the patient. Yes * Additional services required to return to the preadmission environment? Yes * Can the patient safely return to the preadmission environment? No * Has this patient been hospitalized within the prior 30 days at any hospital? No Coverage Notice Reviewer: [id number] - Leslie Westbrook Notice Issued Date-Time: 12/31/2019 14:34 Notice Type: Patient Choice Letter Notice Delivered To: Patient Relationship to Patient: Self Rural Service Engineer Name: Chaitanya Villafuerte Delivery Method: HAND - Hand Delivered Cynthia Days: Prior Verbal Notification: Recipient Understood Notice: Yes Recipient Signature: Yes Med Rec Note Co-signed by Attending: Coverage Notice Comment: #1 [facility], #2 [facility] Last DP export: 01/02/20 9:36 a Patient Name: CHAITANYA VILLAFUERTE Page [phone] at 1022 All edits/amendments must be made on the electronic document DICTATION DATE: 01/06/20 1021 HAIRSPRING INSPECTOR: VIKTOR 01/06/20 1021 RPT#: [id number] DC DATE: STATUS: ADM IN [facility] [address] [place] [address] END OF REPORT
--- NOTE | 2020-01-06 11:40 | MORECARE ---
CASE MANAGEMENT DISCHARGE SUMMARY PATIENT: CHAITANYA VILLAFUERTE AARTI UNIT: [id number] ADM DATE: 12/30/19 AGE: 79 : 42 SEX: F ROOM/BED: D.2236 AUTHOR: STEVO,DOC PHYSICIAN: REFERRING PHYSICIAN: NIKO GAYTAN MD DATE OF SERVICE: 01/06/20 Discharge Plan Patient Name: CHAITANYA VILLAFUERTE Facility: [facility]:[place] : 1940 Planned Disposition: Anticipated Discharge Date: Discharge Date: Expected LOS: Initial Reviewer: [email or web address] Initial Review Date: 12/30/2019 Generated: 01/06/20 12:40 pm Comments DCP- Discharge Planning Updated by [id number]: Le Mark on 01/06/20 10:[address] Patient Name: CHAITANYA VILLAFUERTE Admission Status: Elective Accout number: [id number] Admission Date: 12-30-2019 : 1940 Admission Diagnosis:UNILATERAL PRIMARY OSTEOARTHRITIS, LEFT KNEE Attending: NIKO GAYTAN Current LOS: 7 Anticipated DC Date: Planned Disposition: Primary Insurance: [facility] MEDICARE SOLUTIONS Discharge Planning Comments: PATIENT AUTH APPROVED FOR SNF. THE [facility] CAN ACCEPT TO THEIR FACILITY IF ALL DOCTORS ARE IN AGREEMENT. WILL COORDINATE HOUSE REGISTRY RN TIME WITH THE [facility]. Mosaic Worker: Le Mark DCP- Discharge Planning Updated by [email or web address]: Le Mark on 01/06/20 9:[address] Patient Name: CHAITANYA VILLAFUERTE Admission Status: Elective Accout number: [id number] Admission Date: 12-30-2019 : 1940 Admission Diagnosis:UNILATERAL PRIMARY OSTEOARTHRITIS, LEFT KNEE Attending: NIKO GAYTAN Current LOS: 7 Anticipated DC Date: Planned Disposition: Primary Insurance: [facility] MEDICARE SOLUTIONS Discharge Planning Comments: UPDATE FAXED TO THE [facility]. WAITING CALL BACK. Mosaic Worker: Le Mark DCP- Discharge Planning Updated by [email or web address]: Marilin Russell on 01/02/20 9:[address] UPDATED CLINICAL FAXED TO MALATHI AT THE [facility] AND VERBAL REPORT GIVEN. DCP- Discharge Planning Updated by [id number]: Leslie Westbrook on 01/01/20 1:[address] CB from [facility], and patient has been accepted to [facility] for a SNF stay. Patient's nurse made aware of same. DCP- Discharge Planning Updated by [id number]: Leslie Pietro on 12/31/19 1:[address] CB from [facility]. Le states the facility will not have a bed available until next week. CM contacted Michelle, with the [facility] and faxed required information, pending insurance authorization. CM met with patient again, today for DC plans. Patient is in agreement to go into a SNF, her choice id [facility]. Patient choice has been signed. CM contacted Le Adrien [phone])[facility] and faxed the required documentation. Await CB. Patient states that she would really like to walk from her apartment to [facility]. Patient has [facility] 2H/day, 3D/week prior to admission. CM dissuaded patient from walking to therapy , at least until she goes through her therapy and returns for her follow-up appointment. Patient agrees to same. DCP- Discharge Planning Updated by [email or web address]: Leslie Pietro on 12/30/19 1:[address] CM met with patient, who is still drowsy, to discuss DC plans. Patient is in agreement to same. PCP: Dr. Robert Silva. Pharmacy: [facility]. Patient lives independently at [facility], alone. DME: Emergency call maurer, walker, cane, CPM, BSC, Shower chair, hand held shower. Emergency contact: Nicolás Villafuerte (son) [phone]. CM discussed HHS, OP Therapy, SNF, Rehab. Patient states that she plans to go to [facility] for OP Therapy. When questioned about transportation, patient reports "I'll walk there." Patient reports that she does not want to go into a SNF due to the COVID virus. CM will revisit tomorrow, when the patient is more alert and discuss DC plans again. DCPIA - Discharge Planning Initial Assessment Updated by [id number]: Leslie Westbrook on 12/30/19 2:22 pm * Is the patient Alert and Oriented? Yes * How many steps to enter\\exit or inside your home? * PCP Dr. Robert Nichole. * Pharmacy Car M/G * Preadmission Environment Home Alone * ADLs Independent * Equipment Bedside Commode Cane Grab Bars Rolling Walker Tub Bench Walker * Other Equipment CPM * List name and contact numbers for known caregivers / representatives who currently or will assist patient after discharge: Nicolás Villafuerte [phone] * Verbal permission to speak to the caregivers and representatives has been obtained from the patient. Yes * Additional services required to return to the preadmission environment? Yes * Can the patient safely return to the preadmission environment? No * Has this patient been hospitalized within the prior 30 days at any hospital? No Coverage Notice Reviewer: [id number] Ty Westbrook Notice Issued Date-Time: 12/31/2019 14:34 Notice Type: Patient Choice Letter Notice Delivered To: Patient Relationship to Patient: Self Land Survey Technician Name: Chaitanya Villafuerte Delivery Method: HAND - Hand Delivered Cynthia Days: Prior Verbal Notification: Recipient Understood Notice: Yes Recipient Signature: Yes Med Rec Note Co-signed by Attending: Coverage Notice Comment: #1 [facility], #2 [facility] DP export: 01/06/20 9:22 a Patient Name: CHAITANYA VILLAFUERTE Page [phone] at 1140 All edits/amendments must be made on the electronic document DICTATION DATE: 01/06/20 1140 DUMPER OPERATOR: VIKTOR 01/06/20 1140 RPT#: [id number] DC DATE: STATUS: ADM IN [facility] [address] [place] [address] END OF REPORT
[2020-01-06] MEDS ORDERED: BUMEX 1 MG/1 MG/4 ML IV (14:25)
[2020-01-06] MEDS ORDERED: HYDROCODON-ACE1 EA10 PO (14:25)
[2020-01-06] MEDS ORDERED: BUMEX2 MG PO (14:49)
[2020-01-06 15:00] VITALS: BP 124/50
--- NOTE | 2020-01-06 15:27 | NUR ---
OT NOTE: PT CONT TO REQUIRE MAX ASSIST WITH BED MOB AND USE OF TRAPEZE BAR. MOD ASSIST AND CUES TO SCOOT TO EOB IN ORDER TO MAINTAIN GOOD STATIC SITTING BALANCE. MAX ASSIST TO RENE SOCKS; MIN ASSIST WITH GOWN; TRANSFER TO BS COMMODE WITH MOD/MAX ASSIST AND USE OF WALKER.. CONSTANT CUES TO BEAR WT THROUGH WALKER WITH UES WHILE ATTEMPTING TO MOVE NON SURGICAL LEG. PT WITH PAIN IN WEAKNESS IN B LES. TOILET HYGIENE WITH MAX ASSIST; ABLE TO TRANSFER FROM TOILET TO CHAIR WITH MOD ASSIST X 2. PROVIDED PT WITH WASH CLOTH TO WASH FACE AND HANDS. ASSIST WITH BACK AND PERINEAL AREA. EDUCATED IN UE EXS TO PERFORM WHILE SITTING UP IN CHAIR. MADYSON KO, OTR/L [phone]
--- NOTE | 2020-01-06 18:46 | NUR ---
DISCUSSED DISCHARGE AND EDUCATION INFO. RECEIVED WELL. TRANSFERRED TO THE [facility] VIA AMBULANCE. NO ACUTE DISTRESS NOTED. IV REMOVED, FULLY INTACT.
--- NOTE | 2020-01-07 08:40 | MORECARE ---
CASE MANAGEMENT DISCHARGE SUMMARY PATIENT: CHAITANYA VILLAFUERTE AARTI UNIT: [id number] ADM DATE: 12/30/19 AGE: 79 : 42 SEX: F ROOM/BED: D.2236 AUTHOR: STEVO,DOC PHYSICIAN: REFERRING PHYSICIAN: NIKO GAYTAN MD DATE OF SERVICE: 01/07/20 Discharge Plan Patient Name: CHAITANYA VILLAFUERTE Facility: [facility]:[place] : 1940 Planned Disposition: Anticipated Discharge Date: Discharge Date: 01/06/2020 Expected LOS: Initial Reviewer: [id number] Initial Review Date: 12/30/2019 Generated: 01/07/20 9:40 am DCP- Discharge Planning Updated by [id number]: Le Mark on 01/06/20 10:[address] Patient Name: CHAITANYA VILLAFUERTE Admission Status: Elective Accout number: [id number] Admission Date: 12-30-2019 : 1940 Admission Diagnosis:UNILATERAL PRIMARY OSTEOARTHRITIS, LEFT KNEE Attending: NIKO GAYTAN Current LOS: 7 Anticipated DC Date: Planned Disposition: Primary Insurance: [facility] MEDICARE SOLUTIONS Discharge Planning Comments: PATIENT AUTH APPROVED FOR SNF. THE [facility] CAN ACCEPT TO THEIR FACILITY IF ALL DOCTORS ARE IN AGREEMENT. WILL COORDINATE WEIGHT TRAINING INSTRUCTOR TIME WITH THE [facility]. Truck Driver Instructor: Le Mark DCP- Discharge Planning Updated by [id number]: Le Mark on 01/06/20 9:[address] Patient Name: CHAITANYA VILLAFUERTE Admission Status: Elective Accout number: [id number] Admission Date: 12-30-2019 : 1940 Admission Diagnosis:UNILATERAL PRIMARY OSTEOARTHRITIS, LEFT KNEE Attending: NIKO GAYTAN Current LOS: 7 Anticipated DC Date: Planned Disposition: Primary Insurance: [facility] MEDICARE SOLUTIONS Discharge Planning Comments: UPDATE FAXED TO THE [facility]. WAITING CALL BACK. Truck Driver Instructor: Le Mark DCP- Discharge Planning Updated by [id number]: Marilin Russell on 01/02/20 9:[address] UPDATED CLINICAL FAXED TO MALATHI AT THE [facility] AND VERBAL REPORT GIVEN. DCP- Discharge Planning Updated by [id number]: Leslie Westbrook on 01/01/20 1:[address] CB from [facility], and patient has been accepted to [facility] for a SNF stay. Patient's nurse made aware of same. DCP- Discharge Planning Updated by [email or web address]: Leslie Pietro on 12/31/19 1:[address] CB from [facility]. Le states the facility will not have a bed available until next week. CM contacted Michelle, with the [facility] and faxed required information, pending insurance authorization. CM met with patient again, today for DC plans. Patient is in agreement to go into a SNF, her choice id [facility]. Patient choice has been signed. CM contacted [facility] [phone])[facility] and faxed the required documentation. Await CB. Patient states that she would really like to walk from her apartment to [facility]. Patient has [facility] 2H/day, 3D/week prior to admission. CM dissuaded patient from walking to therapy , at least until she goes through her therapy and returns for her follow-up appointment. Patient agrees to same. DCP- Discharge Planning Updated by [email or web address]: Leslie Westbrook on 12/30/19 1:[address] CM met with patient, who is still drowsy, to discuss DC plans. Patient is in agreement to same. PCP: Dr. Robert Silva. Pharmacy: [facility]. Patient lives independently at [facility], alone. DME: Emergency call maurer, walker, cane, CPM, BSC, Shower chair, hand held shower. Emergency contact: Nicolás Villafuerte (son) [phone]. CM discussed HHS, OP Therapy, SNF, Rehab. Patient states that she plans to go to [facility] for OP Therapy. When questioned about transportation, patient reports "I'll walk there." Patient reports that she does not want to go into a SNF due to the COVID virus. CM will revisit tomorrow, when the patient is more alert and discuss DC plans again. DCPIA - Discharge Planning Initial Assessment Updated by [id number]: Leslie Westbrook on 12/30/19 2:22 pm * Is the patient Alert and Oriented? Yes * How many steps to enter\\exit or inside your home? * PCP Dr. Robert Nichole. * Pharmacy Car M/G * Preadmission Environment Home Alone * ADLs Independent * Equipment Bedside Commode Cane Grab Bars Rolling Walker Tub Bench Walker * Other Equipment CPM * List name and contact numbers for known caregivers / representatives who currently or will assist patient after discharge: Nicolás Villafuerte [phone] * Verbal permission to speak to the caregivers and representatives has been obtained from the patient. Yes * Additional services required to return to the preadmission environment? Yes * Can the patient safely return to the preadmission environment? No * Has this patient been hospitalized within the prior 30 days at any hospital? No Coverage Notice Reviewer: [id number] - Leslie Westbrook Notice Issued Date-Time: 12/31/2019 14:34 Notice Type: Patient Choice Letter Notice Delivered To: Patient Relationship to Patient: Self Kiln Hand Name: Chaitanya Villafuerte Delivery Method: HAND - Hand Delivered Cynthia Days: Prior Verbal Notification: Recipient Understood Notice: Yes Recipient Signature: Yes Med Rec Note Co-signed by Attending: Coverage Notice Comment: #1 [facility], #2 [facility] DP export: 01/06/20 10:40 a Patient Name: CHAITANYA VILLAFUERTE Page [phone] at 0840 All edits/amendments must be made on the electronic document DICTATION DATE: 01/07/20839 HELPDESK ANALYST: VIKTOR 01/07/20839 RPT#: [id number] DC DATE:01/06/20 STATUS: DIS IN [facility] [address] [place] [address] END OF REPORT
--- NOTE | 2020-01-07 08:59 | EC ---
PATIENT:CHAITANYA RICKS DATE OF SERVICE: 12/30/19 SEX: F MEDICAL RECORD: [id number] DATE OF : [birth year] LOCATION:D.[facility] AGE OF PATIENT: 79 ADMISSION DATE: 12/30/19 REFERRING PHYSICIAN: INTERPRETING PHYSICIAN: JUSTIN HALL MD ECHOCARDIOGRAM REPORT ECHO CHARGES 4 ECHO COMPLETE Date: 01/03/20 CLINICAL DIAGNOSIS: SOB ECHOCARDIOGRAPHIC MEASUREMENTS (adult normal given) AC root (d.<3.7cm) 2.7 cm LV Septum d (<1.2 cm> 1.0 cm Valve Excursion 1.2 cm LV Septum (systole) 1.6 cm Left Atria (s.<4.0cm> 4.4 cm LVPW d(<1.2cm) 0.9 cm RV (d.<2.3cm) 2.8 cm LVPW (sytole) 1.2 cm LV diastole(<5.6CM) 4.6 cm MV E-F(>70mm/sec) cm LV systole 3.0 cm LVOT Diameter 1.6 cm MV exc.(>10mm) 1.5 cm Est.ejection fraction (50-75%) % DOPPLER: LVIT cm/sec A 74 cm/sec E 168 cm/sec LA cm/sec RVSP 55 mmHg LVOT 92 cm/sec AOP1/2T m/s Asc. Ao 242 cm/sec RVOT 64 cm/sec RA cm/sec PA 88 cm/sec AV Gradient Peak 23.4 mmHg AV Mean 12.8 mmHg AV Area 0.7 cm MV Gradient Peak 13.0 mmHg MV Mean 5.1 mmHg MV Area cm COMMENTS: Ship Superintendent: Ajit [facility] Entry Level Account Executive: 3 Dr. Olivera TAPE# PACS Pericardial Effusion N DATE OF SERVICE: Adequate 2D, color-flow imaging, spectral Doppler, and M-Mode No LVH. LV internal dimensions are normal. There is global hypokinesis, more marked septal hypokinesis consistent with postop valve state. Overall, LV function reduced 30% to 35%. Prosthetic tissue aortic valve is noted with a peak gradient of 23 mmHg putting this in the physiologically mild range. No obvious AI is noted. Left atrium is dilated at 4.4 cm. Mitral valve is thickened. Mitral annular calcification. Mild MR. Right-sided chamber appears ECHOCARDIOGRAM REPORT [id number] CHAITANYA RICKS grossly normal. Mild TR. TRANSINT:[id number] Voice Confirmation ID: [id number] DOCUMENT ID: [id number] JUSTIN HALL MD at 0859 CC: [id number] DICTATION DATE: 01/04/20922 SENIOR SQL SERVER DEVELOPER: 01/04/20 1148 DIS IN 01/06/20 [place] [id number] [place] [id number]
[2020-01-08 04:09] LABS: IMMUNOGLOBULIN E 12 IU/mL (6-495)
== END 2020-01-06 19:16 | DRG 469 ==
LOC: D.SDCHOLD 12-25 10:00 → D.M3 12-30 10:43 → D.SDCHOLD 12-30 11:00 → D.MS 01-04 14:46
PROVIDERS: Family Medicine Adult Medicine; Internal Medicine Pulmonary Disease; ADMIT Orthopaedic Surgery; ATTEND Orthopaedic Surgery
PROC: 0SRD0JZ Replacement of Left Knee Joint with Synthetic Substitute, Open Approach (ICD-10-PCS; principal; 2019-12-30 09:15)
DX: M17.12 Unilateral primary osteoarthritis, left knee (principal); J18.9 Pneumonia, unspecified organism; D62 Acute posthemorrhagic anemia; E78.5 Hyperlipidemia, unspecified; E11.65 Type 2 diabetes mellitus with hyperglycemia; H40.9 Unspecified glaucoma; K59.09 Other constipation; G89.29 Other chronic pain; M54.9 Dorsalgia, unspecified; F32.9 Major depressive disorder, single episode, unspecified; Z79.01 Long term (current) use of anticoagulants; Z95.2 Presence of prosthetic heart valve; Z87.891 Personal history of nicotine dependence; I25.10 Atherosclerotic heart disease of native coronary artery without angina pectoris; J30.9 Allergic rhinitis, unspecified; I50.9 Heart failure, unspecified; K21.9 Gastro-esophageal reflux disease without esophagitis; E66.01 Morbid (severe) obesity due to excess calories; Z68.37 Body mass index [BMI] 37.0-37.9, adult; I11.0 Hypertensive heart disease with heart failure

== ENCOUNTER → 2019-12-11 14:57 | Outpatient (CLI) | payer MEDICARE, MEDICAID ==
[2018-08-23 12:52] VITALS: BMI 35.4
[~2019-12-11 14:57] MED LIST changes: +COUMADIN5 MG PO; -WARFARIN SODIUM5 MG PO
== END | disposition home or self-care (01) ==
LOC: D.LAB 14:57
PROVIDERS: ATTEND Orthopaedic Surgery
DX: E11.9 Type 2 diabetes mellitus without complications (principal)

== ENCOUNTER → 2020-06-02 12:43 | Outpatient (CLI) | payer MEDICARE, MEDICAID ==
[2020-02-26 20:08] VITALS: BMI 36.5
[~2020-06-02 12:43] MED LIST changes: -ACETAMINOPHEN325 MG; +ACETAMINOPHEN325 MG PO; +ADOXA100 MG PO; +BUMEX 1 MG/1 MG/4 ML IV; +BUMEX2 MG PO; -COUMADIN5 MG PO; +Coumadin [PBKC] PO; +DECADRON4 MG PO; +FEXMID7.5 MG; +FEXMID7.5 MG PO; +HUMALOG 30100 UNITS/ SC; +HYDROCODON-ACE1 EA10 PO; +JANTOVEN7.5 MG PO; +KEFLEX500 MG PO; +LOVENOX INJ100 MG/ML SC; +LUTEIN20 MG PO; +OMNICEF300 MG PO; +PAXIL20 MG PO; +ULTRAM50 MG PO; +VENTOLIN HFA [SP8 GM INH; +Vancomycin 1.25 GM/N IV; +WARFARIN SODIUM5 MG PO; +ZYVOX600 MG PO; +[UNRECOGNIZED DRUG - OTHER] PO; +ocuvite PO
== END | disposition home or self-care (01) ==
LOC: D.RAD 12:43
PROVIDERS: ATTEND Internal Medicine Pulmonary Disease
DX: J18.9 Pneumonia, unspecified organism (principal)

== ENCOUNTER 2020-06-23 13:27 | Emergency (ER) | payer MEDICARE, MEDICAID ==
[~2020-06-23] VITALS: Ht 160 cm; Wt 103.2 kg
[2020-06-23 13:29] VITALS: BP 184/72; Ht 160 cm; Wt 103.2 kg
[2020-06-23 14:13] LABS: CALC OSMOLALITY 281 mosm/kg (275-300); CALCIUM 8.7 mg/dL (8.5-10.1); CARBON DIOXIDE 26.6 mmol/L (21.0-32.0); CHLORIDE - SERUM 104 mmol/L (98-107); CREATININE - SERUM 0.9 mg/dL (0.6-1.3); SODIUM 138 mmol/L (136-145); UREA NITROGEN 24 mg/dL (7-18); eGFR NON AFRICAN AMERICAN 64 mL/min (90-120)
[2020-06-23 14:14] LABS: GLUCOSE 138 mg/dL (74-106)
[2020-06-23 14:29] LABS: ALBUMIN 3.1 g/dL (3.4-5.0); ALKALINE PHOSPHATASE 61 U/L (30-120); ALT (SGPT) 18 U/L (10-68); BILIRUBIN - TOTAL 0.32 mg/dL (0.2-1.3); CKMB 1.1 U/L (0.0-3.6); CREATINE KINASE 45 UL (21-215); PRO BNP 1348 pg/mL (0-450); PROTEIN - SERUM 7.3 g/dL (6.4-8.2)
[2020-06-23 14:30] LABS: TROPONIN-I < 0.017 ng/mL (0.000-0.060)
[2020-06-23 15:09] LABS: BASOPHILS 0.2 % (0-2); EOSINOPHILS 2.4 % (0-7); HEMATOCRIT 36.4 % (36.0-48.0); IMMATURE GRANULOCYTES 0.4 % (0-5); LYMPHOCYTE ABS# 1.82 10x3/uL (1.18-3.74); LYMPHOCYTES 18.7 % (15-50); MCH 25.3 pg (26.0-34.0); MCHC 30.2 g/dL (31.0-37.0); MCV 83.7 fL (80.0-100.0); MONOCYTES 10.4 % (2-11); NEUTROPHIL ABS# 6.63 10x3/uL (1.56-6.13); NEUTROPHILS 67.9 % (40-80); PLATELET COUNT 232 10x3/uL (130-400); RBC 4.35 10x6/uL (4.00-5.40); RDW 17.5 % (11.5-14.5); WBC 9.8 10x3/uL (4.8-10.8)
[2020-06-23] MEDS ORDERED: FUROSEMIDE20 MG PO (16:56)
[2020-06-23] MEDS ORDERED: K-DUR20 MEQ PO (16:56)
[2020-06-23 17:16] LABS: APTT 53.1 SECONDS (22.8-39.4); INR 1.7 (0.85-1.17); PROTIME 18.6 SECONDS (11.6-15.0)
[2020-06-23 17:37] LABS: D-DIMER-QUANTITATIVE 2.56 ug/mLFEU (0.20-0.54)
== END 2020-06-23 17:12 | disposition home or self-care (01) ==
LOC: D.ER 13:27
PROVIDERS: Family Medicine
DX: R06.02 Shortness of breath (principal); I50.9 Heart failure, unspecified; E66.01 Morbid (severe) obesity due to excess calories; R60.0 Localized edema; E11.9 Type 2 diabetes mellitus without complications; Z79.4 Long term (current) use of insulin; I11.0 Hypertensive heart disease with heart failure

== ENCOUNTER → 2020-08-12 15:29 | Outpatient (CLI) | payer MEDICARE, MEDICAID ==
[2020-06-23 13:29] VITALS: BMI 40.3
[~2020-08-12 15:29] MED LIST changes: +FUROSEMIDE20 MG PO; +K-DUR20 MEQ PO
[2020-08-12 15:55] LABS: BASOPHILS 0.2 % (0-2); EOSINOPHILS 2.1 % (0-7); HEMATOCRIT 39.7 % (36.0-48.0); HEMOGLOBIN 11.9 g/dL (12-16); IMMATURE GRANULOCYTES 0.5 % (0-5); LYMPHOCYTE ABS# 2.01 10x3/uL (1.18-3.74); LYMPHOCYTES 21.4 % (15-50); MCH 25.9 pg (26.0-34.0); MCV 86.3 fL (80.0-100.0); MONOCYTES 11.5 % (2-11); NEUTROPHIL ABS# 6.02 10x3/uL (1.56-6.13); NEUTROPHILS 64.3 % (40-80); PLATELET COUNT 256 10x3/uL (130-400); RDW 18.2 % (11.5-14.5); WBC 9.4 10x3/uL (4.8-10.8)
[2020-08-12 16:09] LABS: ALBUMIN 3.4 g/dL (3.4-5.0); ANION GAP 12.4 mmol/L (8-16); BILIRUBIN - TOTAL 0.34 mg/dL (0.2-1.3); CALCIUM 9.1 mg/dL (8.5-10.1); CARBON DIOXIDE 30.6 mmol/L (21.0-32.0); CREATININE - SERUM 1.2 mg/dL (0.6-1.3); PROTEIN - SERUM 7.5 g/dL (6.4-8.2)
== END | disposition home or self-care (01) ==
LOC: D.LABREF 15:29
PROVIDERS: ATTEND Internal Medicine Pulmonary Disease
DX: R60.0 Localized edema (principal)

== ENCOUNTER 2020-08-21 10:34 | Inpatient (IN) | payer MEDICARE, MEDICAID ==
[~2020-08-21] VITALS: Ht 157.5 cm; Wt 95.3 kg
[2020-08-21 11:04] LABS: BASOPHILS 0.5 % (0-2); EOSINOPHILS 2.5 % (0-7); HEMATOCRIT 38.5 % (36.0-48.0); HEMOGLOBIN 12.5 g/dL (12-16); LYMPHOCYTES 22.5 % (15-50); MCH 26.4 pg (26.0-34.0); MCHC 32.4 g/dL (31.0-37.0); MCV 81.7 fL (80.0-100.0); MONOCYTES 10.3 % (2-11); NEUTROPHILS 64.2 % (40-80); RBC 4.71 10x6/uL (4.00-5.40); RDW 19.5 % (11.5-14.5); WBC 8.4 10x3/uL (4.8-10.8)
[2020-08-21 11:05] LABS: PLATELET COUNT 196 10x3/uL (130-400)
[2020-08-21 11:14] LABS: CALC OSMOLALITY 275 mosm/kg (275-300); CALCIUM 8.8 mg/dL (8.5-10.1); CHLORIDE - SERUM 101 mmol/L (98-107); GLUCOSE 125 mg/dL (74-106); INR 1.78 (0.85-1.17); POTASSIUM - SERUM 4.2 mmol/L (3.5-5.1); PROTIME 19.2 SECONDS (11.6-15.0); SODIUM 137 mmol/L (136-145); UREA NITROGEN 15 mg/dL (7-18); eGFR NON AFRICAN AMERICAN 57 mL/min (90-120)
[2020-08-21 11:15] LABS: APTT 59.5 SECONDS (22.8-39.4)
[2020-08-21 11:32] LABS: ALBUMIN 3.3 g/dL (3.4-5.0); ALKALINE PHOSPHATASE 76 U/L (30-120); ALT (SGPT) 21 U/L (10-68); BILIRUBIN - TOTAL 0.45 mg/dL (0.2-1.3); CKMB 0.8 U/L (0.0-3.6); CREATINE KINASE 50 UL (21-215); PRO BNP 1619 pg/mL (0-450); PROTEIN - SERUM 8.1 g/dL (6.4-8.2); TROPONIN-I < 0.017 ng/mL (0.000-0.060)
[2020-08-21 11:49] VITALS: BP 172/91
--- NOTE | 2020-08-21 11:58 | NUR ---
RT paged at this time for updrafts.
[2020-08-21 13:38] VITALS: BP 131/89
[2020-08-21 14:32] VITALS: BP 113/68
[2020-08-21 17:49] LABS: BILIRUBIN NEGATIVE (NEGATIVE); KETONE NEGATIVE (NEGATIVE); NITRITE NEGATIVE (NEGATIVE); UROBILINOGEN NORMAL mg/dL (< 2)
[2020-08-21 19:40] VITALS: BP 159/75
--- NOTE | 2020-08-21 23:00 | NUR ---
REPORT RECEIVED. PT A&O, RESTING QUIETLY IN BED. NO S/S OF DISTRESS OBSERVED. RR EVEN & UNLABORED ON 4L. SR 74 ON TELE. IV TO R AC INFUSING NS @ 100CC/HR. DRESSING C/D/I. NO S/S OF INFILTRATION. BED LOCKED AND LOWERED, CL IN REACH. ASSESSMENT COMPLETE. WILL CONT POC.
[2020-08-21 23:35] VITALS: BP 176/76
[2020-08-22 03:51] VITALS: BP 174/84
[2020-08-22 05:30] VITALS: BP 144/76
[2020-08-22 06:39] LABS: BASOPHILS 0.5 % (0-2); EOSINOPHILS 2.3 % (0-7); HEMATOCRIT 39.8 % (36.0-48.0); MCH 26.5 pg (26.0-34.0); MCHC 32.5 g/dL (31.0-37.0); MCV 81.3 fL (80.0-100.0); MEAN PLATELET VOLUME 8.7 fL (7.4-10.4); MONOCYTES 13.7 % (2-11); NEUTROPHILS 63.5 % (40-80); PLATELET COUNT 209 10x3/uL (130-400); RDW 18.6 % (11.5-14.5); WBC 7.8 10x3/uL (4.8-10.8)
--- NOTE | 2020-08-22 07:00 | NUR ---
RECEIVED REPORT. ASSUMED CARE OF PATIENT. CALL LIGHT WITHIN REACH. PATIENT RESTING WITH EYES CLOSED. WHITE BOARD UPDATED, BEDSIDE SHIFT REPORT COMPLETE. NO DISTRESS.
[2020-08-22 07:05] LABS: ALBUMIN 3.1 g/dL (3.4-5.0); ANION GAP 8.4 mmol/L (8-16); BILIRUBIN - TOTAL 0.54 mg/dL (0.2-1.3); CALCIUM 8.7 mg/dL (8.5-10.1); CARBON DIOXIDE 34.5 mmol/L (21.0-32.0); CREATININE - SERUM 1.2 mg/dL (0.6-1.3); POTASSIUM - SERUM 3.9 mmol/L (3.5-5.1); PROTEIN - SERUM 8.1 g/dL (6.4-8.2)
--- NOTE | 2020-08-22 07:24 | NUR ---
FSBS 75, NO INSULIN PER SLIDING SCALE.
[2020-08-22 08:25] VITALS: BP 129/62
[2020-08-22 09:02] VITALS: BMI 41.0
--- NOTE | 2020-08-22 09:32 | NUR ---
Patient has implanted insulin pump. pump is preprogrammed. patient does not controll or program the amount of insulin that is administered.
--- NOTE | 2020-08-22 11:48 | NUR ---
FSBS 126. NO INSULIN PER SLIDING SCALE.
--- NOTE | 2020-08-22 12:38 | NUR ---
BUSINESS DEVELOPMENT AGENT AT BEDSIDE AT THIS TIME. NO DISTRESS.
[2020-08-22 15:56] VITALS: BP 139/54
--- NOTE | 2020-08-22 16:06 | NUR ---
FSBS 131. NO INSULIN PER SLIDING SCALE.
[2020-08-22 20:00] VITALS: BP 132/56
[2020-08-22 20:09] VITALS: BP 132/56
--- NOTE | 2020-08-22 22:12 | NUR ---
INITIAL ROUNDS COMPLETED AT 1914 HRS. PT DENIED ANY DISCOMFORT. ASSESSMENT COMPLETED AT 1954 HRS. O2 4LNC. VSS. ALERT AND ORIENTED TO PERSON, PLACE AND TIME. MADRIGAL PALPABLE PERIPHERAL PULSES. IV TO L HAND WITH BUMEX DRIP AT 2.5CC/HR. IV PATETN. LUGS DIMINISHED N BASE BILAT. RUISES NOTED TO BILAT ARMS, BACK AND R LOWER LEG. PT HAS AARTI INSULIN PUMP AND SENSOR. PM FSBS 232. REFUSED COVERAGE DUE TO INSULIN PUNP. PM MEDS GIVEN. PUREWICK IN USE WITH MODERATE AMOUT OF YELLOW URINE IN CANNISTER. PT CURRENTLY WATCHING TV. SR UP X2, CALL LIGHT WITHIN REACH.
[2020-08-23 00:01] VITALS: BP 129/55
--- NOTE | 2020-08-23 00:21 | NUR ---
PT RESTING WITH EYES CLOSED. RESP EVEN AND REGUALAR. SR UP X2, CALL LIGHT WITHIN REACH AND BED ALARM ON.
--- NOTE | 2020-08-23 02:14 | NUR ---
PT RESTING WITH EYES CLOSED. RESP EVEN AND REGULAR. SR UP X2,CALL LIGHT WTIHIN REACH.
--- NOTE | 2020-08-23 04:34 | NUR ---
URINE NOTED IN BED. PT CLEANED, BED LINENS CHANGED. NEW PUREWICK PLACED. PT DENIES ANY DISCOMFORT. SR UP X2, CALL LIGHT WITHIN REACH.
[2020-08-23 04:49] VITALS: BP 153/68
[2020-08-23 06:05] LABS: BASOPHILS 0.4 % (0-2); EOSINOPHILS 3.7 % (0-7); HEMATOCRIT 40.2 % (36.0-48.0); LYMPHOCYTES 25.8 % (15-50); MCH 26.3 pg (26.0-34.0); MCHC 32.4 g/dL (31.0-37.0); MCV 81.3 fL (80.0-100.0); MEAN PLATELET VOLUME 8.5 fL (7.4-10.4); MONOCYTES 15.2 % (2-11); NEUTROPHILS 54.9 % (40-80); PLATELET COUNT 199 10x3/uL (130-400); RBC 4.94 10x6/uL (4.00-5.40); RDW 18.8 % (11.5-14.5); WBC 7.1 10x3/uL (4.8-10.8)
--- NOTE | 2020-08-23 06:06 | NUR ---
VSS THORUGHOUT NIGHT. PT DENIED ANY DISCOMFORT. NEEDS MET; WILL CONTINUE TO MONITOR.
[2020-08-23 06:37] LABS: ANION GAP 7.8 mmol/L (8-16); BILIRUBIN - TOTAL 0.38 mg/dL (0.2-1.3); CALCIUM 8.6 mg/dL (8.5-10.1); CARBON DIOXIDE 34.1 mmol/L (21.0-32.0); CREATININE - SERUM 1.3 mg/dL (0.6-1.3); POTASSIUM - SERUM 3.9 mmol/L (3.5-5.1)
--- NOTE | 2020-08-23 07:00 | NUR ---
RECEIVED REPORT. ASSUMED CARE OF PATIENT. PATIENT RESTING WITH EYES CLOSED, RESP EVEN AND UNLABORED. CALL LIGHT WITHN REACH. BUMEX INFUSING ORDERED. WHITE BOARD UPDATED, BEDSIDE SHIFT REPORT COMPLETE. NO DISTRESS.
[2020-08-23 08:00] VITALS: BP 146/82
[2020-08-23 09:45] VITALS: Ht 157.5 cm; Wt 95.3 kg
[2020-08-23 12:00] VITALS: BP 141/65
--- NOTE | 2020-08-23 14:50 | EC ---
PATIENT:CHAITANYA RICKS DATE OF SERVICE: 08/21/20 SEX: F MEDICAL RECORD: [id number] DATE OF : [birth year] LOCATION:D.M2 D.210 AGE OF PATIENT: 79 ADMISSION DATE: 08/21/20 REFERRING PHYSICIAN: INTERPRETING PHYSICIAN: CIPRIANO MONTAÑO MD ECHOCARDIOGRAM REPORT ECHO CHARGES 4 ECHO COMPLETE Date: 08/22/20 CLINICAL DIAGNOSIS: LVH ECHOCARDIOGRAPHIC MEASUREMENTS (adult normal given) AC root (d.<3.7cm) 2.3 cm LV Septum d (<1.2 cm> 1.2 cm Valve Excursion 1.0 cm LV Septum (systole) 1.4 cm Left Atria (s.<4.0cm> 4.5 cm LVPW d(<1.2cm) 1.0 cm RV (d.<2.3cm) 2.8 cm LVPW (sytole) 1.2 cm LV diastole(<5.6CM) 5.0 cm MV E-F(>70mm/sec) cm LV systole 4.0 cm LVOT Diameter 1.5 cm MV exc.(>10mm) 1.1 cm Est.ejection fraction (50-75%) % DOPPLER: LVIT cm/sec A 104 cm/sec E 113 cm/sec LA cm/sec RVSP 31 mmHg LVOT 77 cm/sec AOP1/2T m/s Asc. Ao 189 cm/sec RVOT 76 cm/sec RA cm/sec PA 83 cm/sec AV Gradient Peak 14.3 mmHg AV Mean 9.0 mmHg AV Area 0.7 cm MV Gradient Peak 7.4 mmHg MV Mean 4.6 mmHg MV Area cm COMMENTS: 5 5 Deck Scaler: 5 CHALO JI Consultant Dietitian: 5 Dr. Montaño TAPE# Pericardial Effusion N DATE OF SERVICE: CLINICAL DIAGNOSIS: Left ventricular hypertrophy. INTERPRETATION: Technically difficult study, overall normal left ventricular chamber size and contractile function with mild concentric left ventricular hypertrophy with ejection fraction of 45% to 50%. Left atrial chamber enlargement. Right atrium and right ventricular chamber size and function appears normal. Aortic valve not well visualized, but appears to have mild leaflet thickening and aortic sclerosis. No stenosis. Mild aortic ECHOCARDIOGRAM REPORT [id number] CHAITANYA RICKS regurgitation. Mitral valve is mildly thickened leaflets. Mild mitral annulus calcification. Mild mitral regurgitation. Tricuspid valve appears normal. Mild tricuspid regurgitation. Pulmonic valve not well visualized. No pulmonary regurgitation noted. No pericardial effusion visualized. FINAL IMPRESSION: Normal left ventricular chamber size with mild concentric left ventricular hypertrophy and mild global left ventricular contractile dysfunction with ejection fraction of 45% to 50%. TRANSINT:[id number] Voice Confirmation ID: [id number] DOCUMENT ID: [id number] CIPRIANO MONTAÑO MD at 1450 CC: [id number] DICTATION DATE: 08/22/201643 PHYSIOLOGIST: 08/22/201917 ADM IN [facility] [address] [place] [id number]
--- NOTE | 2020-08-23 15:35 | NUR ---
CALLED AND SPOKE WITH ANNE IN THE LAB REGARDING THE POSITIVE BC THAT WAS REPORTED FROM LEFT AC YESTERDAY, TODAY UNABLE TO SEE POSITIVE BLOOD CULTURE ON THIS PATIENT. ANNE STATES HE CAN SEE GRAM POSITIVE COCCI ID BUT WHEN HE TRIES TO OPEN AND PRINT THE REPORT, IT IS EMPTY. WILL HAVE TO FOLLOW UP WITH MICROBIOLOGY IN THE AM.
[2020-08-23 16:00] VITALS: BP 137/64
--- NOTE | 2020-08-23 16:04 | NUR ---
FSBS 158. PATIENTS INSULIN PUMP ADMINISTERED 3.5 UNITS AT THIS TIME.
[2020-08-23 21:00] VITALS: BP 150/50
--- NOTE | 2020-08-23 22:20 | NUR ---
INITIAL ROUNDS COMPLETED AT 1915 HRS. PT DENIED ANY DISCOMFORT. ASSESSMENT COMPLETED AT 2004 HRS. VSS. ALERT AND ORIENTED TO PERSON, PLACE AND TIME. MADRIGAL. PALPABLE PERIPHERAL PULSES. IV TO HAND WITH BUMEX AT 2.5CC/HR. IV PATENT. LUNGS DIMINISHED IN BASES BILAT. PUREWICK IN USE DRAINING YELLOW URINE. PM MEDS GIVEN. PM FSBS 268. PT PROGRAMMED RESULT IN HER INSULIN PUMP AND 7.9 UNITS GIVEN VIA INSULIN PUMP. BRUISES NOTED TO BILAT ARMS, LOWER R LEG AND BACK. PT CURRENTLY WATCHING TV. SR UP X2, CALL LIGHT WITHIN REACH.
[2020-08-24] VITALS (7 sets, daily range): BP systolic 110–160; BP diastolic 53–83
--- NOTE | 2020-08-24 00:31 | NUR ---
PT AWAKE; DENIES ANY DISCOMFORT. CALL LIGHT WITHIN REACH.
--- NOTE | 2020-08-24 03:18 | NUR ---
PT RESTING WITH EYES CLOSED. RESP EVEN AND REGULAR. SR UP X2, CALL LIGHT WITHIN REACH.
--- NOTE | 2020-08-24 05:56 | NUR ---
VSS THROUGHOUT SHIFT. PT DENIED ANY DISCOMFORT. NEEDS MET; WILL CONTINUE TO MONITOR.
[2020-08-24 06:47] LABS: BASOPHILS 0.5 % (0-2); EOSINOPHILS 1.5 % (0-7); HEMATOCRIT 40.4 % (36.0-48.0); HEMOGLOBIN 13.3 g/dL (12-16); LYMPHOCYTES 20.1 % (15-50); MCH 26.7 pg (26.0-34.0); MCHC 32.9 g/dL (31.0-37.0); MCV 81.3 fL (80.0-100.0); MEAN PLATELET VOLUME 9.2 fL (7.4-10.4); MONOCYTES 12.4 % (2-11); NEUTROPHILS 65.5 % (40-80); PLATELET COUNT 206 10x3/uL (130-400); RBC 4.97 10x6/uL (4.00-5.40); RDW 18.2 % (11.5-14.5)
--- NOTE | 2020-08-24 07:00 | NUR ---
RECIEVED REPORT. ASSUMED CARE OF PATIENT. CALL LIGHT WITHIN REACH. STATES SHE SLEP WELL. WHITE BOARD UPDATED, BEDSIDE SHIFT REPORT COMPLETE. NO DISTRESS.
[2020-08-24 07:05] LABS: BILIRUBIN - TOTAL 0.45 mg/dL (0.2-1.3); CARBON DIOXIDE 35.1 mmol/L (21.0-32.0); CREATININE - SERUM 1.3 mg/dL (0.6-1.3); POTASSIUM - SERUM 4.1 mmol/L (3.5-5.1); PROTEIN - SERUM 8.2 g/dL (6.4-8.2)
[2020-08-24 07:06] LABS: WBC 9.7 10x3/uL (4.8-10.8)
--- NOTE | 2020-08-24 11:05 | NUR ---
SHOWER COMPLETE, LINENS CHANGED. ASSISTED PATIENT BACK IN BED. PATIENT RECONNECTED HER SENSOR AND INSULIN PUMP AT THIS TIME. NO DISTRESS.
--- NOTE | 2020-08-24 11:30 | NUR ---
FSBS 205. 7.2 U INSULIN ADMINISTERED BY PERSONAL INSULIN PUMP AT THIS TIME. NO DISTRESS.
--- NOTE | 2020-08-24 13:09 | NUR ---
OOB TO CHAIR AT BEDSIDE
--- NOTE | 2020-08-24 14:22 | NUR ---
PT OOB AMBULATING WITH PT AROUND UNIT. PATIENT AMBULATED APPROX 100FT PER PT
--- NOTE | 2020-08-24 15:03 | NUR ---
GT BELT, O2 AT 3, PATIENT WAS MOD ASST TO GET UP TO BEDSIDE. PATIENT STOOD AND WALKED IN [place] FOR 100 FEET USING WALKER WITH MIN ASST. PATIENT GOT SHORT OF BREATH DURING WALK AND FATIGUED.
--- NOTE | 2020-08-24 16:29 | NUR ---
FSBS 201. INSULIN PUMP DELIVERED 5UNITS INSULIN AT THIS TIME. NO DISTRESS.
--- NOTE | 2020-08-25 03:56 | NUR ---
DC'D PT BUMEX DRIP. SALINE LOCKED IV. PT A/O X4. VSS. WILL CONTINUE TO MONITOR.
[2020-08-25 04:00] VITALS: BP 147/75
[2020-08-25 05:07] LABS: BASOPHILS 0.6 % (0-2); EOSINOPHILS 2.1 % (0-7); LYMPHOCYTES 19.4 % (15-50); MCH 26.4 pg (26.0-34.0); MCHC 32.4 g/dL (31.0-37.0); MCV 81.4 fL (80.0-100.0); MEAN PLATELET VOLUME 9.1 fL (7.4-10.4); NEUTROPHILS 63.9 % (40-80); PLATELET COUNT 229 10x3/uL (130-400); RBC 4.92 10x6/uL (4.00-5.40); RDW 18.5 % (11.5-14.5); WBC 10.1 10x3/uL (4.8-10.8)
[2020-08-25 05:08] LABS: INR 1.17 (0.85-1.17); PROTIME 13.8 SECONDS (11.6-15.0)
[2020-08-25 05:38] LABS: ALBUMIN 2.9 g/dL (3.4-5.0); ANION GAP 7.5 mmol/L (8-16); BILIRUBIN - TOTAL 0.37 mg/dL (0.2-1.3); CALCIUM 9.2 mg/dL (8.5-10.1); CARBON DIOXIDE 33.7 mmol/L (21.0-32.0); CREATININE - SERUM 1.5 mg/dL (0.6-1.3); POTASSIUM - SERUM 4.2 mmol/L (3.5-5.1); PROTEIN - SERUM 8.3 g/dL (6.4-8.2)
--- NOTE | 2020-08-25 05:50 | NUR ---
I have reviewed this patient and I concur with the Shift Assessment completed by the Licensed Practical Nurse today this shift.
[2020-08-25 07:55] VITALS: BP 119/80
--- NOTE | 2020-08-25 12:05 | NUR ---
D/C LEFT HAND IV, TIP INTACT. LEAKING. PLACED 20G IN LEFT FOREARM. ANTIBIOTIC STARTED.
[2020-08-25 12:22] VITALS: BP 149/89
--- NOTE | 2020-08-25 12:41 | NUR ---
Nutrition Reassessment/Follow-up: Eating well. Noted 16# wt loss since admit. Bumex drip d/c'd; now PO. Discussed in IDT meeting; possible d/c by the end of the week. Diet: Diabetic, <=2 g Na PO intake: 96% avg x 6 meals (08/23-08/24) Wt: 208# (08/25); 210.4# (08/24); 224# (08/21)BMI: 38Adj BW: 134.5# Labs noted: BUN 45, Cre 1.5, GFR 36, Glu 163, Alb 2.9 Meds noted: Bumex, Coumadin, Florajen, Micro K, electrolyte protocol Est needs: 5937-2113 kcal/day (25-30 kcal/kg adj BW) 60-75 g protein/day (0.6-0.8 g/kg actual BW) 7095-4427 mL fluid/day (1 mL/kcal) or per MD Nutrition Diagnosis: -Altered nutrition-related lab values R/T kidney dysfunction, DM AEB BUN 45, Cre 1.5, GFR 36, Glu 163. -Obesity R/T presumably excessive energy intake AEB BMI 38.0. -Decreased sodium needs R/T heart failure AEB fluid retention. Nutrition Goals: -PO intake >=75% avg of meals/snacks. -Meet est fluid needs without fluid overload. -Stable dry wt/appropriate wt loss. -Glu at or near normal. Nutrition Intervention: -Monitor wt & labs. -RD will follow up within 7 days if pt still admitted.
--- NOTE | 2020-08-25 14:12 | NUR ---
patiient walked 100 ft with walker and 3 liters 2 used gt belt patient is a bit weak tired out fairly fast and needed min assit to stand
[2020-08-25 15:51] VITALS: BP 105/42
[2020-08-25 21:04] VITALS: BP 151/71
[2020-08-26 00:14] VITALS: BP 149/79
[2020-08-26 04:36] VITALS: BP 146/64
[2020-08-26 06:26] LABS: BASOPHILS 0.3 % (0-2); HEMATOCRIT 40.4 % (36.0-48.0)
[2020-08-26 06:29] LABS: EOSINOPHILS 1.1 % (0-7); HEMOGLOBIN 13.3 g/dL (12-16); INR 1.26 (0.85-1.17); LYMPHOCYTES 8.3 % (15-50); MCH 26.6 pg (26.0-34.0); MCHC 32.9 g/dL (31.0-37.0); MCV 80.9 fL (80.0-100.0); MEAN PLATELET VOLUME 9.5 fL (7.4-10.4); MONOCYTES 9.1 % (2-11); NEUTROPHILS 81.2 % (40-80); PLATELET COUNT 219 10x3/uL (130-400); PROTIME 14.7 SECONDS (11.6-15.0); RBC 4.99 10x6/uL (4.00-5.40); RDW 18.3 % (11.5-14.5)
[2020-08-26 06:34] LABS: WBC 17.8 10x3/uL (4.8-10.8)
[2020-08-26 06:51] LABS: ALBUMIN 2.9 g/dL (3.4-5.0); ANION GAP 11.8 mmol/L (8-16); BILIRUBIN - TOTAL 0.26 mg/dL (0.2-1.3); CALCIUM 9.7 mg/dL (8.5-10.1); CREATININE - SERUM 1.2 mg/dL (0.6-1.3); POTASSIUM - SERUM 4.8 mmol/L (3.5-5.1); PROTEIN - SERUM 8.9 g/dL (6.4-8.2)
--- NOTE | 2020-08-26 07:06 | NUR ---
PT LYING IN BED WITH EYES CLOSED. RAISES TO VERBAL STIMULI. RESP EVEN AND UNLABORED. O2 3 LPM VIA NC. DENIES NEEDS AT THIS TIME. CLIR. BED IN LOWEST POSITION. SIDE RAILS X2
[2020-08-26 08:10] VITALS: BP 151/68
--- NOTE | 2020-08-26 09:24 | NUR ---
I have reviewed this patient and I concur with the Shift Assessment completed by the Licensed Practical Nurse today this shift.
--- NOTE | 2020-08-26 13:14 | NUR ---
CLEAR YELLOW URINE SAMPLE COLLECTED AND SENT TO LAB BY LUCILLE FERRO
[2020-08-26 14:02] LABS: BACTERIA FEW HPF (NONE SEEN); BILIRUBIN NEGATIVE (NEGATIVE); KETONE NEGATIVE (NEGATIVE); NITRITE NEGATIVE (NEGATIVE); SQUAMOUS EPITHELIAL OCC HPF (0-4); UROBILINOGEN NORMAL mg/dL (< 2); WHITE CELLS - URINE RARE HPF (0-4)
--- NOTE | 2020-08-26 19:11 | NUR ---
PT WAS AMBULATING BACK TO BED FROM BATHROOM X1 ASSIST AND LOST BALANCE. PT FELL BEFORE I WAS ABLE TO CATCH HER. PT DID NOT HIT HER HEAD, AND LANDED ON HER BACK. VS WNL. NO INJURIES NOTED. PT STATES NO PAIN. ASSISTED BACK TO BED. JUVENCIO CALLAHAN, PAGED. WAITING FOR HIM TO RETURN MY CALL. CHARGE NURSE, SAM SPEARS, NOTIFIED. POURED PIPE MAKER NOTIFIED. CLIR. BED IN LOWEST POSITION. BED ALARM TURNED ON A FUNCTIONING PROPERLY
[2020-08-26 21:00] VITALS: BP 149/61
--- NOTE | 2020-08-26 21:15 | NUR ---
OT NOTE: PT COMPLETED SUPINE TO SIT WITH MIN A. PT COMPLETED ADL MOB WITH MIN A TO BATHROOM. PT COMPLETED TOILET HYGIENE WITH BM WITH MAX A. PT REQUIRED MAX A TO THREAD BRIEFS. PT COMPLETED AND HYGIENE WITH CGA AT SINK. ALARM ON...CL WITHIN REACH. [phone] THANK YOU,CINDY FRASER
[2020-08-26 23:36] VITALS: BP 138/73
--- NOTE | 2020-08-27 01:06 | NUR ---
PT IV LEAKING UPON FLUSHING IT. NEW ONE STARTED TO LEFT WRIST AREA. 20GAUGE, TOLERATED WELL
[2020-08-27 04:00] VITALS: BP 107/68
[2020-08-27 05:33] LABS: BASOPHILS 0.3 % (0-2); EOSINOPHILS 2.6 % (0-7); HEMATOCRIT 36.5 % (36.0-48.0); HEMOGLOBIN 11.8 g/dL (12-16); LYMPHOCYTES 19.3 % (15-50); MCH 26.1 pg (26.0-34.0); MCHC 32.2 g/dL (31.0-37.0); MCV 81.1 fL (80.0-100.0); MEAN PLATELET VOLUME 8.5 fL (7.4-10.4); MONOCYTES 10.7 % (2-11); NEUTROPHILS 67.1 % (40-80); RDW 17.9 % (11.5-14.5)
[2020-08-27 05:37] LABS: PLATELET COUNT 266 10x3/uL (130-400); WBC 10.7 10x3/uL (4.8-10.8)
[2020-08-27 06:02] LABS: ALBUMIN 2.7 g/dL (3.4-5.0); ANION GAP 10.7 mmol/L (8-16); BILIRUBIN - TOTAL 0.33 mg/dL (0.2-1.3); CALCIUM 9.2 mg/dL (8.5-10.1); CARBON DIOXIDE 32.4 mmol/L (21.0-32.0); CREATININE - SERUM 1.2 mg/dL (0.6-1.3); POTASSIUM - SERUM 5.1 mmol/L (3.5-5.1); PROTEIN - SERUM 7.9 g/dL (6.4-8.2)
[2020-08-27 06:05] LABS: INR 1.34 (0.85-1.17); PROTIME 15.3 SECONDS (11.6-15.0)
[2020-08-27 06:23] VITALS: BP 107/68
--- NOTE | 2020-08-27 06:42 | NUR ---
08/26/20 @ 1999 NOTIFIED SINDY OF PT FALL(WITNESSED BY STAFF) EARLIER THIS EVENING. PT DENIES ANY INJURY. WILL CONTINUE TO MONITOR.
--- NOTE | 2020-08-27 07:00 | NUR ---
Lying in bed, awake/alert/oriented, T/R self with assist ad jake, cont of B/B with use of purewick cath/bedpan ad jake, denies pain/other discomfort at this time, call light/phone/water within reach, no s/s of acute distress observed.
[2020-08-27 07:40] VITALS: BP 151/64
[2020-08-27 11:36] VITALS: BP 157/68
[2020-08-27] MEDS ORDERED: IPRAT-ALBUT 0.5-3 ML UPD (12:05)
[2020-08-27] MEDS ORDERED: BUMEX2 MG PO (12:06)
[2020-08-27] MEDS ORDERED: PULMICORT0.5 MG/21 UPD (12:07)
[2020-08-27] MEDS ORDERED: K-TAB10 MEQ PO (12:07)
[2020-08-27] MEDS ORDERED: TESSALON PERLE100 MG PO (12:07)
[2020-08-27] MEDS ORDERED: ROBITUSSIN DM 110 ML PO (12:08)
[2020-08-27] MEDS ORDERED: FLORAJEN DIGES1 EACH PO (12:08)
[2020-08-27] MEDS ORDERED: VIBRAMYCIN 100100 MG PO (12:09)
[2020-08-27] MEDS ORDERED: OMNICEF300 MG PO (12:09)
--- NOTE | 2020-08-27 13:14 | NUR ---
OT NOTE: PT COMPLETED SUPINE TO SIT WITH CGA. PT COMPLETED ADL MOB WITH CGA-MIN A. PT COMPLETED TOILETING WITH SBA. PT COMPLETED TOILETING HYGIENE WITH MAX A. PT COMPLETED TOILET TO SHOWER TSF WITH CGA-MIN A. PT COMPLETED SHOWER WITH MAX A FOR BACK AND FEET. PT COMPLETED RENE/DOFF SOCKS WITH TOTAL A. PT COMPLETED RENE GOWN WITH MOD A FOR SNAPS. PT REQUIRED MIN A FOR RENE BRIEF. PT COMPLETED HAIR GROOMING WITH SETUP. CN PREP FOR SHOWER BY COVERING IV..ETC. ALARM ON...CL IN REACH. [id number] THANKLINA GOEL COTA
--- NOTE | 2020-08-27 13:44 | NUR ---
GT BELT, O2 AT 3, PATIENT MIN ASST TO STAND AND TO WALK 250 FEET USING WALKER.
--- NOTE | 2020-08-27 14:20 | MORECARE ---
CASE MANAGEMENT DISCHARGE SUMMARY PATIENT: CHAITANYA RICKS UNIT: [id number] ADM DATE: 08/21/20 AGE: 79 : 42 SEX: F ROOM/BED: D.210 AUTHOR: STEVO,DOC PHYSICIAN: REFERRING PHYSICIAN: FELICIA CASTELLANOS MD DATE OF SERVICE: 08/27/20 Case Management Discharge Planning Summary DCP REVIEW SUMMARY ANTICIPATED D/C DATE: 08/27/2020 EXPECTED LOS : 6 CASE STATUS: DCP Initiated INITIAL REVIEW: 08/21/2020 INITIAL REVIEWER: Delilah Dove FINAL DISCHARGE DISPOSITION: 01 : Home or Self Care (Routine Discharge) FINAL REVIEWER: FINAL REVIEW DATE: DCP Focus Questions & Answers QUESTION: ANSWER : PATIENT: CHAITANYA RICKS ENCOUNTER: [id number] MEDICAL RECORD#: [id number] ADMISSION DATE: 08/21/2020 DISCHARGE DATE: ATTENDING MD: FELICIA JUAREZ : AGE: 79 MARITAL STATUS: W DC PLAN ID: [id number] FACILITY: [facility] PRINTED ON: 08/27/20 14:20 CT All edits/amendments must be made on the electronic document DICTATION DATE: 08/27/201419 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
--- NOTE | 2020-08-27 14:32 | MORECARE ---
CASE MANAGEMENT DISCHARGE SUMMARY PATIENT: CHAITANYA VILLAFUERTE UNIT: [id number] ADM DATE: 08/21/20 AGE: 79 : 42 SEX: F ROOM/BED: D.2106 AUTHOR: STEVO,DOC PHYSICIAN: REFERRING PHYSICIAN: FELICIA CASTELLANOS MD DATE OF SERVICE: 08/27/20 Case Management Discharge Planning Summary COMMENTS ENTERED DATE: 08/27/20 14:22 CT COMMENT TYPE: Discharge Planning REVIEWER: Delilah Dove CM met with patient to complete discharge planning assessment and offer availability of needed services. Patient states she lives independently at home prior to admission. Patient verified that home environment is safe and has electricity and running water. Patient states that she has a personal care home administrator aide 3 hours a day to help to help with housework, cooking, and personal care if needed. Patient denies need for transportation and states that she has funds for services and medications if needed. PCP is Dr. Christianson and patient uses a mail delivery pharmacy but can not recall the name of it. CM offered and discussed home health, rehab services, and any additional need for any medical equipment. Patient did not express need for offered services at this time. Patient currently has home O2 and an nebulizer in addition to other adaptive equipment .Transportation home will be provided by pt han Villafuerte ([phone]). Patient verbalized understanding of signed forms. IMM served, and signed copy placed on chart. No additional needs at this time. DCP REVIEW SUMMARY ANTICIPATED D/C DATE: 08/27/2020 EXPECTED LOS : 6 CASE STATUS: DCP Initiated INITIAL REVIEW: 08/21/2020 INITIAL REVIEWER: Delilah Dove FINAL DISCHARGE DISPOSITION: 01 : Home or Self Care (Routine Discharge) FINAL REVIEWER: FINAL REVIEW DATE: DCP Focus Questions & Answers DCP Screen QUESTION: ANSWER High Risk Factors: : Hosp related to CHF, COPD, DM, End Stage Ds, CVA, CA DCP Evaluation QUESTION: ANSWER Patient's current cognitive status: : *Oriented to person, place, situation, time and present Patient's ability to cope with chronic illness : d. No chronic illness Patient and/or caregiver agree upon recommended discharge plan? : Yes Does the patient have the ability to pay for or attain post discharge needs / services? : Yes Functional screen assessment: : Basic needs can adequately be met by self Family / Caregiver's ability to cope with chronic illness: : a. Adequate (ability to meet patient's medical needs, ensures patient attends medical appts.) Physical Status: : Independent with ADL's Is there a likelihood that the patient will require additional services to return to the preadmission environment? : Yes Living Arrangements: : Home Alone with Support Equipment needed for post hospitalization: : None Patient with capacity for self-care or can be cared for in same environment as prior to hospitalization? : Yes Baseline cognitive status: : *Oriented to person, place, situation, time and present Results of this evaluation have been discussed with: : Patient Physical environment modification needed / anticipated for discharge: : N/A Medication Management: : Patient states can read and understand medication labels Medication Management: : Patient states they do have transportation to bulk picker medications Medication Management: : Patient states can afford medications [facility] name([facility]): : [facility] Planned post hospital services available for patient? : N/A Does Patient have transportation to get home and to follow-up medical appointments when discharged from the hospital? : Yes Planned post hospital services covered by insurance plan? : N/A Would patient like to participate in any Care Coordination programs (if applicable): : Not applicable Does the patient have electricity at home? : Yes Does the patient have running water in their house? : Yes Equipment in use: : Walker - Rollator Equipment in use: : Shower Chair Equipment in use: : Nebulizer Equipment in use: : Home Oxygen with Nasal Cannula Equipment in use: : Cane - Single Leg Mental health screen: : No mental health history Psychosocial status: : Independent adult (65+) Abuse/Neglect: : None Resources / Services in place: : None DCP Re-evaluation QUESTION: ANSWER Would patient like to participate in any Care Coordination programs (if applicable): : Not applicable PATIENT: CHAITANYA VILLAFUERTE ENCOUNTER: [id number] MEDICAL RECORD#: [id number] ADMISSION DATE: 08/21/2020 DISCHARGE DATE: ATTENDING MD: FELICIA JUAREZ : AGE: 79 MARITAL STATUS: W DC PLAN ID: [id number] FACILITY: [facility] PRINTED ON: 08/27/20 14:31 CT All edits/amendments must be made on the electronic document DICTATION DATE: 08/27/201430 CLINICAL PROJECT MANAGER: VIKTOR 08/27/20 1431 RPT#: [id number] DC DATE: STATUS: ADM IN [facility] [address] [place] [address] END OF REPORT
--- NOTE | 2020-08-27 15:53 | NUR ---
Provided written/verbal discharge instructions/education to which pt voiced understanding.
--- NOTE | 2020-08-27 16:00 | NUR ---
Discontinued IV access/cardiac telemetry monitoring.
--- NOTE | 2020-08-27 16:15 | NUR ---
DC'd home in stable condition via w/c accompanied by hospital staff and family member, no s/s of acute distress observed.
--- NOTE | 2020-08-28 20:09 | MORECARE ---
CASE MANAGEMENT DISCHARGE SUMMARY PATIENT: CHAITANYA VILLAFUERTE UNIT: [id number] ADM DATE: 08/21/20 AGE: 79 : 42 SEX: F ROOM/BED: D.2106 AUTHOR: STEVO,DOC PHYSICIAN: REFERRING PHYSICIAN: FELICIA CASTELLANOS MD DATE OF SERVICE: 08/28/20 Case Management Discharge Planning Summary COMMENTS ENTERED DATE: 08/27/20 14:22 CT COMMENT TYPE: Discharge Planning REVIEWER: Delilah Dove CM met with patient to complete discharge planning assessment and offer availability of needed services. Patient states she lives independently at home prior to admission. Patient verified that home environment is safe and has electricity and running water. Patient states that she has a aboriginal home school liaison officer aide 3 hours a day to help to help with housework, cooking, and personal care if needed. Patient denies need for transportation and states that she has funds for services and medications if needed. PCP is Dr. Christianson and patient uses a mail delivery pharmacy but can not recall the name of it. CM offered and discussed home health, rehab services, and any additional need for any medical equipment. Patient did not express need for offered services at this time. Patient currently has home O2 and an nebulizer in addition to other adaptive equipment .Transportation home will be provided by pt han Villafuerte ([phone]). Patient verbalized understanding of signed forms. IMM served, and signed copy placed on chart. No additional needs at this time. DCP REVIEW SUMMARY ANTICIPATED D/C DATE: 08/27/2020 EXPECTED LOS : 6 CASE STATUS: DCP Initiated INITIAL REVIEW: 08/21/2020 INITIAL REVIEWER: Delilah Dove FINAL DISCHARGE DISPOSITION: 01 : Home or Self Care (Routine Discharge) FINAL REVIEWER: FINAL REVIEW DATE: DCP Focus Questions & Answers DCP Screen QUESTION: ANSWER High Risk Factors: : Hosp related to CHF, COPD, DM, End Stage Ds, CVA, CA DCP Evaluation QUESTION: ANSWER Patient and/or caregiver agree upon recommended discharge plan? : Yes Patient's ability to cope with chronic illness : d. No chronic illness Patient's current cognitive status: : *Oriented to person, place, situation, time and present Physical Status: : Independent with ADL's Family / Caregiver's ability to cope with chronic illness: : a. Adequate (ability to meet patient's medical needs, ensures patient attends medical appts.) Functional screen assessment: : Basic needs can adequately be met by self Does the patient have the ability to pay for or attain post discharge needs / services? : Yes Equipment needed for post hospitalization: : None Living Arrangements: : Home Alone with Support Is there a likelihood that the patient will require additional services to return to the preadmission environment? : Yes Results of this evaluation have been discussed with: : Patient Baseline cognitive status: : *Oriented to person, place, situation, time and present Patient with capacity for self-care or can be cared for in same environment as prior to hospitalization? 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 : N/A [facility] name(s): : [facility] Planned post hospital services covered by insurance plan? : N/A Does Patient have transportation to get home and to follow-up medical appointments when discharged from the hospital? : Yes Would patient like to participate in any Care Coordination programs (if applicable): : Not applicable Does the patient have electricity at home? : Yes Does the patient have running water in their house? : Yes Equipment in use: : Cane - Single Leg Equipment in use: : Home Oxygen with Nasal Cannula Equipment in use: : Nebulizer Equipment in use: : Shower Chair Equipment in use: : Walker - Rollator Mental health screen: : No mental health history Psychosocial status: : Independent adult (65+) Abuse/Neglect: : None Resources / Services in place: : None DCP Re-evaluation QUESTION: ANSWER Would patient like to participate in any Care Coordination programs (if applicable): : Not applicable PATIENT: CHAITANYA VILLAFUERTE ENCOUNTER: [id number] MEDICAL RECORD#: [id number] ADMISSION DATE: 08/21/2020 DISCHARGE DATE: 08/27/2020 ATTENDING MD: FELICIA JUAREZ : [birth year] AGE: 79 MARITAL STATUS: W DC PLAN ID: [id number] FACILITY: [facility] PRINTED ON: 08/28/20 20:09 CT All edits/amendments must be made on the electronic document DICTATION DATE: 08/28/202008 SCREWDOWN OPERATOR: DM 08/28/202008 RPT#: [id number] DC DATE:08/27/20 STATUS: DIS IN [facility] [address] [place] [address] END OF REPORT
== END 2020-08-27 16:15 | disposition home or self-care (01) | DRG 291 ==
LOC: D.ER 10:34 → D.M2 13:16
PROVIDERS: Emergency Medicine; ADMIT Family Medicine Adult Medicine; ATTEND Family Medicine Adult Medicine
DX: I11.0 Hypertensive heart disease with heart failure (principal); J96.20 Acute and chronic respiratory failure, unspecified whether with hypoxia or hypercapnia; Z68.41 Body mass index [BMI] 40.0-44.9, adult; E66.01 Morbid (severe) obesity due to excess calories; I27.20 Pulmonary hypertension, unspecified; B94.8 Sequelae of other specified infectious and parasitic diseases; I50.23 Acute on chronic systolic (congestive) heart failure; E11.9 Type 2 diabetes mellitus without complications; G89.29 Other chronic pain; M54.9 Dorsalgia, unspecified